=== PATIENT | male | born 1980 | race Caucasian/White ===

== ENCOUNTER → 2021-02-11 15:24 | Outpatient (BNVA) | payer MEDICAID, SELFPAY | PROVIDERS: PCP Internal Medicine; Visit Provider Internal Medicine | DX: Z86.73 Personal history of transient ischemic attack (TIA), and cerebral infarction without residual deficits (principal); Z51.81 Encounter for therapeutic drug level monitoring; Z79.01 Long term (current) use of anticoagulants | CPT/HCPCS: 85610; 99211 ==

== ENCOUNTER → 2021-02-24 09:15 | Outpatient (BNVA) | payer MEDICAID, SELFPAY | PROVIDERS: PCP Internal Medicine; Visit Provider Internal Medicine | DX: Z86.73 Personal history of transient ischemic attack (TIA), and cerebral infarction without residual deficits (principal); Z51.81 Encounter for therapeutic drug level monitoring; Z79.01 Long term (current) use of anticoagulants | CPT/HCPCS: 85610; 99211 ==

== ENCOUNTER → 2021-03-10 09:29 | Outpatient (BNVA) | payer MEDICAID, SELFPAY | PROVIDERS: PCP Internal Medicine; Visit Provider Internal Medicine | DX: Z86.73 Personal history of transient ischemic attack (TIA), and cerebral infarction without residual deficits (principal); Z51.81 Encounter for therapeutic drug level monitoring; Z79.01 Long term (current) use of anticoagulants | CPT/HCPCS: 85610; 99211 ==

== ENCOUNTER → 2021-03-22 10:07 | Outpatient (BNVA) | payer MEDICAID, SELFPAY | PROVIDERS: PCP Internal Medicine; Visit Provider Internal Medicine | DX: Z86.73 Personal history of transient ischemic attack (TIA), and cerebral infarction without residual deficits (principal); Z51.81 Encounter for therapeutic drug level monitoring; Z79.01 Long term (current) use of anticoagulants | CPT/HCPCS: 85610; 99211 ==

== ENCOUNTER → 2021-04-15 15:04 | Outpatient (BNVA) | payer MEDICAID, SELFPAY | PROVIDERS: PCP Internal Medicine; Visit Provider Internal Medicine Cardiovascular Disease | DX: I63.9 Cerebral infarction, unspecified (principal) | CPT/HCPCS: 93005; 99202 ==

== ENCOUNTER → 2021-04-21 10:07 | Outpatient (BNVA) | payer MEDICAID, SELFPAY | PROVIDERS: PCP Internal Medicine; Visit Provider Internal Medicine | DX: Z86.73 Personal history of transient ischemic attack (TIA), and cerebral infarction without residual deficits (principal); Z51.81 Encounter for therapeutic drug level monitoring; Z79.01 Long term (current) use of anticoagulants | CPT/HCPCS: 85610; 99211 ==

== ENCOUNTER → 2021-05-25 10:17 | Outpatient (BNVA) | payer MEDICAID, SELFPAY | PROVIDERS: PCP Internal Medicine; Visit Provider Internal Medicine | DX: Z86.73 Personal history of transient ischemic attack (TIA), and cerebral infarction without residual deficits (principal); Z79.01 Long term (current) use of anticoagulants; Z51.81 Encounter for therapeutic drug level monitoring | CPT/HCPCS: 85610; 99211 ==

== ENCOUNTER → 2021-06-01 10:01 | Outpatient (BNVA) | payer MEDICAID, SELFPAY | PROVIDERS: PCP Internal Medicine; Visit Provider Internal Medicine | DX: Z86.73 Personal history of transient ischemic attack (TIA), and cerebral infarction without residual deficits (principal); Z51.81 Encounter for therapeutic drug level monitoring; Z79.01 Long term (current) use of anticoagulants | CPT/HCPCS: 85610; 99211 ==

== ENCOUNTER → 2021-07-13 10:33 | Outpatient (BNVA) | payer MEDICAID, SELFPAY | PROVIDERS: PCP Internal Medicine; Visit Provider Internal Medicine | DX: Z86.73 Personal history of transient ischemic attack (TIA), and cerebral infarction without residual deficits (principal); Z51.81 Encounter for therapeutic drug level monitoring; Z79.01 Long term (current) use of anticoagulants | CPT/HCPCS: 85610; 99211 ==

== ENCOUNTER → 2021-07-20 11:34 | Outpatient (BNVA) | payer MEDICAID, SELFPAY | PROVIDERS: PCP Internal Medicine; Visit Provider Internal Medicine | DX: Z86.73 Personal history of transient ischemic attack (TIA), and cerebral infarction without residual deficits (principal); Z51.81 Encounter for therapeutic drug level monitoring; Z79.01 Long term (current) use of anticoagulants | CPT/HCPCS: 85610; 99211 ==

== ENCOUNTER 2021-08-24 11:15 | Outpatient (REF) | payer MEDICAID, SELFPAY ==
[2021-08-24 12:47] LABS: MANUAL DIFF FLAG NO
[2021-08-24 13:22] LABS: Basophils Percent Auto 0.4 % (0-2); Eosinophils Absolute Auto 0.1 X10*3/uL (0.0-0.4); Eosinophils Percent Auto 2.1 % (0-4); Hematocrit 45.9 % (42.0-52.0); Hemoglobin 16.2 g/dl (14.0-18.0); Imm Gran Abs Auto 0.05 X10*3/uL (0.00-0.03); Imm Gran Pct Auto 0.7 % (0.0-0.4); Lymphocytes Absolute Auto 2.5 X10*3/uL (1.2-4.9); Lymphocytes Percent Auto 36.6 % (20-40); Mean Corpuscular HGB Conc 35.3 g/dl (31.0-36.0); Mean Corpuscular Hemoglobin 30.8 pg (27.0-33.0); Mean Corpuscular Volume 87.3 fL (80.0-98.0); Mean Platelet Volume 10.2 fL (9.4-12.4); Monocytes Absolute Auto 0.5 X10*3/uL (0.1-1.2); Monocytes Percent Auto 7.9 % (2-11); Neutrophils Absolute Auto 3.5 x10*3/uL (2.0-8.3); Neutrophils Percent Auto 52.3 % (45-73); Platelet Count 255 X10*3/uL (160-400); Red Blood Count 5.26 X10*6/uL (4.60-5.80); Red Cell Distribution Width 12.6 % (11.0-16.0); White Blood Count 6.7 X10*3/uL (4.8-10.8)
[2021-08-24 13:54] LABS: Alanine Aminotransferase 43 U/L (0-40); Albumin Level 4.8 g/dL (3.5-5.0); Alkaline Phosphatase 68 U/L (39-117); Anion Gap 12 (12-20); Aspartate Amino Transferase 25 U/L (5-37); Bilirubin Total 0.4 mg/dL (0.0-1.0); Blood Urea Nitrogen 14 mg/dL (9-16); Calcium 9.7 mg/dL (8.4-10.2); Carbon Dioxide 27 mmol/L (22-29); Chloride 105 mmol/L (96-108); Cholesterol 194 mg/dL; Estimated Glomerular Filt Rate > 60; Glucose Random 82 mg/dL (60-115); HDL Cholesterol 37 mg/dL; LDL Cholesterol Calculated 111 mg/dl; Potassium 4.8 mmol/L (3.3-5.1); Sodium 139 mmol/L (135-145); Total Protein 7.7 g/dL (6.5-8.0); Triglycerides 232 mg/dL
[2021-08-24 14:07] LABS: INTERNATIONAL NORM RATIO 2.4 (0.9-1.1); Prothrombin Time 27.8 SEC (9.9-13.0)
== END 2021-08-24 11:16 | disposition home or self-care (01) ==
LOC: HO.LAB 11:15
PROVIDERS: Absent Provider Internal Medicine; PCP Internal Medicine; Visit Provider Internal Medicine
DX: E78.2 Mixed hyperlipidemia (principal); I10 Essential (primary) hypertension; Z79.01 Long term (current) use of anticoagulants; Z86.73 Personal history of transient ischemic attack (TIA), and cerebral infarction without residual deficits
CPT/HCPCS: 36415; 80053; 80061; 85025; 85610; 99211

== ENCOUNTER → 2021-09-21 11:38 | Outpatient (BNVA) | payer MEDICAID, SELFPAY | PROVIDERS: PCP Internal Medicine; Visit Provider Internal Medicine | DX: Z86.73 Personal history of transient ischemic attack (TIA), and cerebral infarction without residual deficits (principal); Z51.81 Encounter for therapeutic drug level monitoring; Z79.01 Long term (current) use of anticoagulants | CPT/HCPCS: 85610; 99211 ==

== ENCOUNTER → 2021-10-19 12:11 | Outpatient (BNVA) | payer MEDICAID, SELFPAY | PROVIDERS: PCP Internal Medicine; Visit Provider Internal Medicine | DX: Z86.73 Personal history of transient ischemic attack (TIA), and cerebral infarction without residual deficits (principal); Z51.81 Encounter for therapeutic drug level monitoring; Z79.01 Long term (current) use of anticoagulants | CPT/HCPCS: 85610; 99211 ==

== ENCOUNTER → 2021-11-03 11:22 | Outpatient (BNVA) | payer MEDICAID, SELFPAY | PROVIDERS: PCP Internal Medicine; Visit Provider Internal Medicine | DX: Z86.73 Personal history of transient ischemic attack (TIA), and cerebral infarction without residual deficits (principal); Z51.81 Encounter for therapeutic drug level monitoring; Z79.01 Long term (current) use of anticoagulants | CPT/HCPCS: 85610; 99211 ==

== ENCOUNTER → 2021-12-01 11:09 | Outpatient (BNVA) | payer MEDICAID, SELFPAY | PROVIDERS: PCP Internal Medicine; Visit Provider Internal Medicine | DX: Z86.73 Personal history of transient ischemic attack (TIA), and cerebral infarction without residual deficits (principal); Z51.81 Encounter for therapeutic drug level monitoring; Z79.01 Long term (current) use of anticoagulants | CPT/HCPCS: 85610; 99211 ==

== ENCOUNTER → 2022-01-03 11:33 | Outpatient (BNVA) | payer MEDICAID, SELFPAY | PROVIDERS: PCP Internal Medicine; Visit Provider Internal Medicine | DX: Z79.01 Long term (current) use of anticoagulants (principal); Z51.81 Encounter for therapeutic drug level monitoring | CPT/HCPCS: 85610; 99211 ==

== ENCOUNTER → 2022-02-07 11:44 | Outpatient (BNVA) | payer MEDICAID, SELFPAY | PROVIDERS: PCP Internal Medicine; Visit Provider Internal Medicine | DX: Z86.73 Personal history of transient ischemic attack (TIA), and cerebral infarction without residual deficits (principal); Z79.01 Long term (current) use of anticoagulants; Z51.81 Encounter for therapeutic drug level monitoring | CPT/HCPCS: 85610; 99211 ==

== ENCOUNTER → 2022-03-09 11:48 | Outpatient (BNVA) | payer MEDICAID, SELFPAY | PROVIDERS: PCP Internal Medicine; Visit Provider Internal Medicine | DX: Z86.73 Personal history of transient ischemic attack (TIA), and cerebral infarction without residual deficits (principal); Z79.01 Long term (current) use of anticoagulants; Z51.81 Encounter for therapeutic drug level monitoring | CPT/HCPCS: 85610; 99211 ==

== ENCOUNTER → 2022-04-06 13:15 | Outpatient (BNVA) | payer MEDICAID, SELFPAY | PROVIDERS: PCP Internal Medicine; Visit Provider Internal Medicine | DX: Z86.73 Personal history of transient ischemic attack (TIA), and cerebral infarction without residual deficits (principal); Z79.01 Long term (current) use of anticoagulants; Z51.81 Encounter for therapeutic drug level monitoring | CPT/HCPCS: 85610; 99211 ==

== ENCOUNTER → 2022-05-04 11:18 | Outpatient (BNVA) | payer MEDICAID, SELFPAY | PROVIDERS: PCP Internal Medicine; Visit Provider Internal Medicine | DX: Z86.73 Personal history of transient ischemic attack (TIA), and cerebral infarction without residual deficits (principal); Z51.81 Encounter for therapeutic drug level monitoring; Z79.01 Long term (current) use of anticoagulants | CPT/HCPCS: 85610; 99211 ==

== ENCOUNTER → 2022-05-17 09:04 | Outpatient (BNVA) | payer MEDICAID, SELFPAY | PROVIDERS: PCP Internal Medicine; Visit Provider Internal Medicine | DX: Z86.73 Personal history of transient ischemic attack (TIA), and cerebral infarction without residual deficits (principal); Z79.01 Long term (current) use of anticoagulants; Z51.81 Encounter for therapeutic drug level monitoring | CPT/HCPCS: 85610; 99211 ==

== ENCOUNTER → 2022-06-14 09:39 | Outpatient (BNVA) | payer MEDICAID, SELFPAY | PROVIDERS: PCP Internal Medicine; Visit Provider Internal Medicine | DX: Z86.73 Personal history of transient ischemic attack (TIA), and cerebral infarction without residual deficits (principal); Z79.01 Long term (current) use of anticoagulants; Z51.81 Encounter for therapeutic drug level monitoring | CPT/HCPCS: 85610; 99211 ==

== ENCOUNTER → 2022-08-09 08:36 | Outpatient (BNVA) | payer MEDICAID, SELFPAY | PROVIDERS: PCP Internal Medicine; Visit Provider Internal Medicine | DX: Z86.73 Personal history of transient ischemic attack (TIA), and cerebral infarction without residual deficits (principal); Z51.81 Encounter for therapeutic drug level monitoring; Z79.01 Long term (current) use of anticoagulants | CPT/HCPCS: 85610; 99211 ==

== ENCOUNTER → 2022-08-29 10:54 | Outpatient (BNVA) | payer MEDICAID, SELFPAY | PROVIDERS: PCP Internal Medicine; Visit Provider Internal Medicine | DX: Z86.73 Personal history of transient ischemic attack (TIA), and cerebral infarction without residual deficits (principal); Z79.01 Long term (current) use of anticoagulants; Z51.81 Encounter for therapeutic drug level monitoring | CPT/HCPCS: 85610; 99211 ==

== ENCOUNTER → 2022-10-04 14:29 | Outpatient (BNVA) | payer MEDICAID, SELFPAY | PROVIDERS: PCP Internal Medicine; Visit Provider Internal Medicine | DX: Z86.73 Personal history of transient ischemic attack (TIA), and cerebral infarction without residual deficits (principal); Z79.01 Long term (current) use of anticoagulants; Z51.81 Encounter for therapeutic drug level monitoring | CPT/HCPCS: 85610; 99211 ==

== ENCOUNTER → 2022-10-19 11:15 | Outpatient (BNVA) | payer MEDICAID, SELFPAY | PROVIDERS: PCP Internal Medicine; Visit Provider Internal Medicine | DX: Z86.73 Personal history of transient ischemic attack (TIA), and cerebral infarction without residual deficits (principal); Z79.01 Long term (current) use of anticoagulants; Z51.81 Encounter for therapeutic drug level monitoring | CPT/HCPCS: 85610; 99211 ==

== ENCOUNTER → 2022-11-09 13:13 | Outpatient (BNVA) | payer MEDICAID, SELFPAY | PROVIDERS: PCP Internal Medicine; Visit Provider Internal Medicine | DX: Z86.73 Personal history of transient ischemic attack (TIA), and cerebral infarction without residual deficits (principal); Z79.01 Long term (current) use of anticoagulants; Z51.81 Encounter for therapeutic drug level monitoring | CPT/HCPCS: 85610; 99211 ==

== ENCOUNTER → 2022-12-07 11:32 | Outpatient (BNVA) | payer MEDICAID, SELFPAY | PROVIDERS: PCP Internal Medicine; Visit Provider Internal Medicine | DX: Z86.73 Personal history of transient ischemic attack (TIA), and cerebral infarction without residual deficits (principal); Z79.01 Long term (current) use of anticoagulants; Z51.81 Encounter for therapeutic drug level monitoring | CPT/HCPCS: 85610; 99211 ==

== ENCOUNTER → 2023-01-23 13:42 | Outpatient (BNVA) | payer MEDICAID, SELFPAY | PROVIDERS: PCP Internal Medicine; Visit Provider Internal Medicine | DX: Z86.73 Personal history of transient ischemic attack (TIA), and cerebral infarction without residual deficits (principal); Z51.81 Encounter for therapeutic drug level monitoring; Z79.01 Long term (current) use of anticoagulants | CPT/HCPCS: 85610; 99211 ==

== ENCOUNTER → 2023-02-07 10:23 | Outpatient (BNVA) | payer MEDICAID, SELFPAY | PROVIDERS: PCP Internal Medicine; Visit Provider Internal Medicine | DX: Z86.73 Personal history of transient ischemic attack (TIA), and cerebral infarction without residual deficits (principal); Z79.01 Long term (current) use of anticoagulants; Z51.81 Encounter for therapeutic drug level monitoring | CPT/HCPCS: 85610; 99211 ==

== ENCOUNTER → 2023-02-14 10:30 | Outpatient (BNVA) | payer MEDICAID, SELFPAY | PROVIDERS: PCP Internal Medicine; Visit Provider Internal Medicine | DX: Z86.73 Personal history of transient ischemic attack (TIA), and cerebral infarction without residual deficits (principal); Z79.01 Long term (current) use of anticoagulants; Z51.81 Encounter for therapeutic drug level monitoring | CPT/HCPCS: 85610; 99211 ==

== ENCOUNTER → 2023-02-28 10:47 | Outpatient (BNVA) | payer MEDICAID, SELFPAY | PROVIDERS: PCP Internal Medicine; Visit Provider Internal Medicine | DX: Z86.73 Personal history of transient ischemic attack (TIA), and cerebral infarction without residual deficits (principal); Z79.01 Long term (current) use of anticoagulants; Z51.81 Encounter for therapeutic drug level monitoring | CPT/HCPCS: 85610; 99211 ==

== ENCOUNTER → 2023-03-28 10:12 | Outpatient (BNVA) | payer MEDICAID, SELFPAY | PROVIDERS: PCP Internal Medicine; Visit Provider Internal Medicine | DX: Z86.73 Personal history of transient ischemic attack (TIA), and cerebral infarction without residual deficits (principal); Z79.01 Long term (current) use of anticoagulants; Z51.81 Encounter for therapeutic drug level monitoring | CPT/HCPCS: 85610; 99211 ==

== ENCOUNTER 2023-04-25 10:10 | Outpatient (AMB) | payer MEDICAID, SELFPAY ==
--- NOTE | 2023-04-25 10:25 | MHC.OFFVISCO ---
Intake Intake Visit Reasons: Anticoagulation Allergies No Known Allergies Allergy (Mild, Verified 04/25/23 10:19) NOT APPLICABLE Medication List - Last Reconciled 04/25/23 by Andreina Lucas RN acetaminophen 650 mg PO DAILY simvastatin 20 mg PO DAILY warfarin 5 mg See Protocol PO DAILY warfarin 7.5 mg See Protocol PO DAILY Nursing Note INR: 3.1 in therapeutic range Medications and supplements reviewed No changes in health, diet, medications, or supplements, Denies any signs and symptoms of bleeding or bruising or clotting. Bleeding, bruising, clotting discussed Nutritional guidance given -ELSA TODAY Dose: 10mg x 1 day/ 7.5mg x 6DAYS F/U INR: 4 WEEKS CALL TO PCP FOR 5MG TAB REFILL Patient verbalizes understanding of instructions given Anti-Coag Initial Assessment Social Hx alcohol intake: current Alcohol intake frequency: holidays/special occasions only Coding Level of Care Code Est Patient Level 1 Diagnoses Current use of anticoagulant therapy Z79.01 Assessment & Plan Assessment & Plan (1) Current use of anticoagulant therapy: Code(s): Z79.01 - snf (current) use of anticoagulants Category: Medical
[2023-04-25 10:27] LABS: Prothrombin Time Whole Bld POC 36.9 sec (11.1-13.5); ~PT, ~INR - Anti Coag Clinic 3.1 (0.9-1.1)
== END 2023-04-25 10:40 | disposition home or self-care (01) ==
LOC: HO.ACS 10:10
PROVIDERS: PCP Internal Medicine; Visit Provider Internal Medicine
DX: Z79.01 Long term (current) use of anticoagulants (principal)

== ENCOUNTER → 2023-04-25 10:10 | Outpatient (BNVA) | payer MEDICAID, SELFPAY | PROVIDERS: PCP Internal Medicine; Visit Provider Internal Medicine | DX: Z86.73 Personal history of transient ischemic attack (TIA), and cerebral infarction without residual deficits (principal); Z79.01 Long term (current) use of anticoagulants; Z51.81 Encounter for therapeutic drug level monitoring | CPT/HCPCS: 85610; 99211 ==

== ENCOUNTER 2023-05-23 09:30 | Outpatient (REF) | payer MEDICAID, SELFPAY ==
[2023-05-23 10:08] LABS: MANUAL DIFF FLAG NO
[2023-05-23 11:02] LABS: Basophils Percent Auto 0.4 % (0-2); Eosinophils Absolute Auto 0.2 X10*3/uL (0.0-0.4); Eosinophils Percent Auto 2.9 % (0-4); Hematocrit 47.9 % (42.0-52.0); Imm Gran Abs Auto 0.05 X10*3/uL (0.00-0.03); Imm Gran Pct Auto 0.7 % (0.0-0.4); Lymphocytes Absolute Auto 2.3 X10*3/uL (1.2-4.9); Lymphocytes Percent Auto 33.2 % (20-40); Mean Corpuscular HGB Conc 35.5 g/dl (31.0-36.0); Mean Corpuscular Hemoglobin 30.6 pg (27.0-33.0); Mean Corpuscular Volume 86.3 fL (80.0-98.0); Mean Platelet Volume 10.7 fL (9.4-12.4); Monocytes Absolute Auto 0.6 X10*3/uL (0.1-1.2); Monocytes Percent Auto 8.6 % (2-11); Neutrophils Absolute Auto 3.7 x10*3/uL (2.0-8.3); Neutrophils Percent Auto 54.2 % (45-73); Platelet Count 224 X10*3/uL (160-400); Red Blood Count 5.55 X10*6/uL (4.60-5.80); Red Cell Distribution Width 12.9 % (11.0-16.0); White Blood Count 6.9 X10*3/uL (4.8-10.8)
[2023-05-23 11:38] LABS: Alanine Aminotransferase 89 U/L (0-40); Albumin Level 4.6 g/dL (3.5-5.0); Alkaline Phosphatase 70 U/L (39-117); Anion Gap 12 (12-20); Aspartate Amino Transferase 59 U/L (5-37); Bilirubin Total 0.7 mg/dL (0.0-1.0); Blood Urea Nitrogen 16 mg/dL (9-16); Calcium 9.8 mg/dL (8.4-10.2); Carbon Dioxide 26 mmol/L (22-29); Chloride 105 mmol/L (96-108); Cholesterol 221 mg/dL; Estimated Glomerular Filt Rate > 60; Glucose Random 96 mg/dL (60-115); HDL Cholesterol 43 mg/dL; Potassium 4.1 mmol/L (3.3-5.1); Sodium 139 mmol/L (135-145); Total Protein 7.8 g/dL (6.5-8.0); Triglycerides 438 mg/dL
== END 2023-05-23 09:31 | disposition home or self-care (01) ==
LOC: HO.LAB 09:30
PROVIDERS: Absent Provider Internal Medicine; PCP Internal Medicine; Visit Provider Internal Medicine
DX: Z00.00 Encounter for general adult medical examination without abnormal findings (principal); E78.00 Pure hypercholesterolemia, unspecified; I10 Essential (primary) hypertension; Z86.73 Personal history of transient ischemic attack (TIA), and cerebral infarction without residual deficits; Z51.81 Encounter for therapeutic drug level monitoring; Z79.01 Long term (current) use of anticoagulants
CPT/HCPCS: 36415; 80053; 80061; 85025; 85610; 99211

== ENCOUNTER 2023-05-23 09:30 | Outpatient (AMB) | payer MEDICAID, SELFPAY ==
--- NOTE | 2023-05-23 09:44 | MHC.OFFVISCO ---
Intake Intake Visit Reasons: Anticoagulation Allergies No Known Allergies Allergy (Mild, Verified 05/23/23 09:39) NOT APPLICABLE Medication List - Last Reconciled 05/23/23 by Shelly Fan RN acetaminophen 650 mg PO DAILY simvastatin 20 mg PO DAILY warfarin 5 mg See Protocol PO DAILY warfarin 7.5 mg See Protocol PO DAILY Nursing Note INR 4.3?? out of therapeutic range Medications and supplements reviewed Patient status: pt returned from [place] Medications or supplements: no changes Diet: same Denies any signs and symptoms of bleeding or clotting or unusual bruising Bleeding, bruising, clotting discussed Nutritional guidance given: eat greens for 2 days, no reds for 2 days Dose: hold today - pt req 5mg tomm then cont reg 7.5mg x 6, 10mg x 1 F/U INR Date : mon05/29/23?? Patient verbalizing understanding of instructions given. Anti-Coag Initial Assessment Social Hx alcohol intake: current Alcohol intake frequency: holidays/special occasions only Coding Level of Care Code Est Patient Level 1 Diagnoses Current use of anticoagulant therapy Z79.01 Results AMB INR Fingerstick AMB INR Fingerstick 4.3 Last Edit by Shelly Fan RN on 05/23/23 09:46 Assessment & Plan Assessment & Plan (1) Current use of anticoagulant therapy: Code(s): Z79.01 - [facility]P (current) use of anticoagulants Category: Medical
[2023-05-23 09:54] LABS: Prothrombin Time Whole Bld POC 51.6 sec (11.1-13.5); ~PT, ~INR - Anti Coag Clinic 4.3 (0.9-1.1)
== END 2023-05-23 09:52 | disposition home or self-care (01) ==
LOC: HO.ACS 09:30
PROVIDERS: PCP Internal Medicine; Visit Provider Internal Medicine
DX: Z79.01 Long term (current) use of anticoagulants (principal)

== ENCOUNTER 2023-05-29 11:37 | Outpatient (AMB) | payer MEDICAID, SELFPAY ==
[2023-05-29 11:43] LABS: Prothrombin Time Whole Bld POC 17.2 sec (11.1-13.5); ~PT, ~INR - Anti Coag Clinic 1.4 (0.9-1.1)
--- NOTE | 2023-05-29 11:46 | MHC.OFFVISCO ---
Intake Intake Visit Reasons: Anticoagulation Allergies No Known Allergies Allergy (Mild, Verified 05/29/23 11:38) NOT APPLICABLE Medication List - Last Reconciled 05/29/23 by Shelly Fan RN acetaminophen 650 mg PO DAILY simvastatin 20 mg PO DAILY warfarin 5 mg See Protocol PO DAILY warfarin 7.5 mg See Protocol PO DAILY Nursing Note INR 1.4-?? out of therapeutic range Medications and supplements reviewed Patient status: no c.o, prev elev 4.3 Medications or supplements: no changes Diet: same Denies any signs and symptoms of bleeding or clotting or unusual bruising Bleeding, bruising, clotting discussed Nutritional guidance given: no greens for 2 days, eat reds to raise Dose: 10mg today and tomm then cont reg 7.5mg x 6, 10mg x 1 F/U INR Date : pt ref earlier than 06/06/23?? Patient verbalizing understanding of instructions given. 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
== END 2023-05-29 11:49 | disposition home or self-care (01) ==
LOC: HO.ACS 11:37
PROVIDERS: PCP Internal Medicine; Visit Provider Internal Medicine
DX: Z79.01 Long term (current) use of anticoagulants (principal)

== ENCOUNTER → 2023-05-29 11:37 | Outpatient (BNVA) | payer MEDICAID, SELFPAY | PROVIDERS: PCP Internal Medicine; Visit Provider Internal Medicine | DX: Z86.73 Personal history of transient ischemic attack (TIA), and cerebral infarction without residual deficits (principal); Z79.01 Long term (current) use of anticoagulants; Z51.81 Encounter for therapeutic drug level monitoring | CPT/HCPCS: 85610; 99211 ==

== ENCOUNTER 2023-06-06 08:25 | Outpatient (AMB) | payer MEDICAID, SELFPAY ==
[2023-06-06 09:01] LABS: Prothrombin Time Whole Bld POC 14.3 sec (11.1-13.5); ~PT, ~INR - Anti Coag Clinic 1.2 (0.9-1.1)
--- NOTE | 2023-06-06 09:04 | MHC.OFFVISCO ---
Intake Intake Visit Reasons: Anticoagulation Allergies No Known Allergies Allergy (Mild, Verified 06/06/23 08:45) NOT APPLICABLE Medication List - Last Reconciled 06/06/23 by Ciera Pritchett RN acetaminophen 650 mg PO DAILY simvastatin 20 mg PO DAILY warfarin 5 mg See Protocol PO DAILY warfarin 7.5 mg See Protocol PO DAILY Nursing Note PT.INSISTS THAT HE HAS NOT MISSED ANY DOSES, BUT HAS STOPPED ETOH FOR THE PAST 2 WEEKS. HE ADMITS THAT HE WILL BE RESUMING ETOH IN A FEW WEEKS. DISCUSSION WAS HELD RE THE USE OF ETOH AND THE EFFECTS AND HAZZARDS OF IT'S USE WITH WARFARIN. PT.VERB.GOOD UNDERSTANDING OF THIS BOOST TO 10MGM 3 DAYS THIS WEEK AND FOLLOW-UP IN 1 WEEK. NO GREENS 3-4 DAYS. WILL INCREASE REDS. GOOD UNDERSTANDING VERB.BY PT. 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
== END 2023-06-06 11:59 | disposition home or self-care (01) ==
LOC: HO.ACS 08:25
PROVIDERS: PCP Internal Medicine; Visit Provider Internal Medicine
DX: Z79.01 Long term (current) use of anticoagulants (principal)

== ENCOUNTER → 2023-06-06 08:25 | Outpatient (BNVA) | payer MEDICAID, SELFPAY | PROVIDERS: PCP Internal Medicine; Visit Provider Internal Medicine | DX: Z86.73 Personal history of transient ischemic attack (TIA), and cerebral infarction without residual deficits (principal); Z79.01 Long term (current) use of anticoagulants; Z51.81 Encounter for therapeutic drug level monitoring | CPT/HCPCS: 85610; 99211 ==

== ENCOUNTER 2023-06-13 08:36 | Outpatient (AMB) | payer MEDICAID, SELFPAY ==
--- NOTE | 2023-06-13 08:42 | MHC.OFFVISCO ---
Intake Intake Visit Reasons: Anticoagulation Allergies No Known Allergies Allergy (Mild, Verified 06/13/23 08:38) NOT APPLICABLE Medication List - Last Reconciled 06/13/23 by Shelly Fan RN acetaminophen 650 mg PO DAILY simvastatin 20 mg PO DAILY warfarin 5 mg See Protocol PO DAILY warfarin 7.5 mg See Protocol PO DAILY Nursing Note INR 1.6-? out of therapeutic range- pt denies missed dosing Medications and supplements reviewed Patient status: pt prev inr 1.2, no c.o offered Medications or supplements: no changes Diet: same Denies any signs and symptoms of bleeding or clotting or unusual bruising Bleeding, bruising, clotting discussed Nutritional guidance given: no greens for 2 days, eat reds to raise Dose: 10mg today then cont 7.5mg x 6, 10mg x 1 F/U INR Date : 1 week?? Patient verbalizing understanding of instructions given. Anti-Coag Initial Assessment Social Hx alcohol intake: current Alcohol intake frequency: holidays/special occasions only Coding Level of Care Code Est Patient Level 1 Diagnoses Current use of anticoagulant therapy Z79.01 Assessment & Plan Assessment & Plan (1) Current use of anticoagulant therapy: Code(s): Z79.01 - [facility] (current) use of anticoagulants Category: Medical
[2023-06-13 08:43] LABS: Prothrombin Time Whole Bld POC 18.7 sec (11.1-13.5); ~PT, ~INR - Anti Coag Clinic 1.6 (0.9-1.1)
== END 2023-06-13 08:51 | disposition home or self-care (01) ==
LOC: HO.ACS 08:36
PROVIDERS: PCP Internal Medicine; Visit Provider Internal Medicine
DX: Z79.01 Long term (current) use of anticoagulants (principal)

== ENCOUNTER → 2023-06-13 08:36 | Outpatient (BNVA) | payer MEDICAID, SELFPAY | PROVIDERS: PCP Internal Medicine; Visit Provider Internal Medicine | DX: Z86.73 Personal history of transient ischemic attack (TIA), and cerebral infarction without residual deficits (principal); Z79.01 Long term (current) use of anticoagulants; Z51.81 Encounter for therapeutic drug level monitoring | CPT/HCPCS: 85610; 99211 ==

== ENCOUNTER 2023-08-02 08:25 | Outpatient (AMB) | payer MEDICAID, SELFPAY ==
--- NOTE | 2023-08-02 08:56 | MHC.OFFVISCO ---
Intake Intake Visit Reasons: Anticoagulation Allergies No Known Allergies Allergy (Mild, Verified 08/02/23 08:51) NOT APPLICABLE Medication List - Last Reconciled 08/02/23 by Shelly Fan RN acetaminophen 650 mg PO DAILY simvastatin 20 mg PO DAILY warfarin 5 mg See Protocol PO DAILY warfarin 7.5 mg See Protocol PO DAILY Nursing Note INR: 2.2- in therapeutic range Medications and supplements reviewed- no changes No changes in health, diet, medications, or supplements, Denies any signs and symptoms of bleeding or bruising or clotting. Bleeding, bruising, clotting discussed Nutritional guidance given Dose: 7.5mg x 6, 10mg x 1 F/U INR: 4 weeks Patient verbalizes understanding of instructions given pt states he may speak to pcp regarding getting off warfarin. 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
[2023-08-02 08:58] LABS: Prothrombin Time Whole Bld POC 26.8 sec (11.1-13.5); ~PT, ~INR - Anti Coag Clinic 2.2 (0.9-1.1)
== END 2023-08-02 09:02 | disposition home or self-care (01) ==
LOC: HO.ACS 08:25
PROVIDERS: PCP Internal Medicine; Visit Provider Internal Medicine
DX: Z79.01 Long term (current) use of anticoagulants (principal)

== ENCOUNTER → 2023-08-02 08:25 | Outpatient (BNVA) | payer MEDICAID, SELFPAY | PROVIDERS: PCP Internal Medicine; Visit Provider Internal Medicine | DX: Z86.73 Personal history of transient ischemic attack (TIA), and cerebral infarction without residual deficits (principal); Z79.01 Long term (current) use of anticoagulants; Z51.81 Encounter for therapeutic drug level monitoring | CPT/HCPCS: 85610; 99211 ==

== ENCOUNTER 2023-08-24 11:21 | Outpatient (REF) | payer MEDICAID, SELFPAY ==
[2023-08-24 11:43] LABS: MANUAL DIFF FLAG NO
[2023-08-24 12:03] LABS: Basophils Percent Auto 0.5 % (0-2); Eosinophils Absolute Auto 0.2 X10*3/uL (0.0-0.4); Eosinophils Percent Auto 2.8 % (0-4); Hemoglobin 16.5 g/dl (14.0-18.0); Imm Gran Abs Auto 0.03 X10*3/uL (0.00-0.03); Imm Gran Pct Auto 0.5 % (0.0-0.4); Lymphocytes Absolute Auto 2.5 X10*3/uL (1.2-4.9); Lymphocytes Percent Auto 41.7 % (20-40); Mean Corpuscular HGB Conc 35.9 g/dl (31.0-36.0); Mean Corpuscular Hemoglobin 31.1 pg (27.0-33.0); Mean Corpuscular Volume 86.6 fL (80.0-98.0); Mean Platelet Volume 10.5 fL (9.4-12.4); Monocytes Absolute Auto 0.4 X10*3/uL (0.1-1.2); Monocytes Percent Auto 6.1 % (2-11); Neutrophils Absolute Auto 2.9 x10*3/uL (2.0-8.3); Neutrophils Percent Auto 48.4 % (45-73); Platelet Count 244 X10*3/uL (160-400); Red Blood Count 5.31 X10*6/uL (4.60-5.80); Red Cell Distribution Width 13.2 % (11.0-16.0)
[2023-08-24 12:51] LABS: Cholesterol 222 mg/dL (<200); HDL Cholesterol 48 mg/dL (>40); LDL Cholesterol Calculated 141 mg/dL (<100); Triglycerides 165 mg/dL (<150)
== END 2023-08-24 11:22 | disposition home or self-care (01) ==
LOC: HO.LAB 11:21
PROVIDERS: PCP Internal Medicine; Visit Provider Internal Medicine
DX: Z13.89 Encounter for screening for other disorder (principal)
CPT/HCPCS: 36415; 80061; 85025

== ENCOUNTER 2023-08-29 10:35 | Outpatient (AMB) | payer MEDICAID, SELFPAY ==
[2023-08-29 10:41] LABS: Prothrombin Time Whole Bld POC 20.8 sec (11.1-13.5); ~PT, ~INR - Anti Coag Clinic 1.7 (0.9-1.1)
--- NOTE | 2023-08-29 10:43 | MHC.OFFVISCO ---
Intake Intake Visit Reasons: Anticoagulation Allergies No Known Allergies Allergy (Mild, Verified 08/29/23 10:36) NOT APPLICABLE Medication List - Last Reconciled 08/29/23 by Ginger Flynn RN acetaminophen 650 mg PO DAILY simvastatin 20 mg PO DAILY warfarin 5 mg See Protocol PO DAILY warfarin 7.5 mg See Protocol PO DAILY Nursing Note Amb to [facility] feeling well, has PCP appt after this visit Medications and supplements reviewed, sts I might have missed a dose but I made up for it when questioned sts he took 10mg vs 7.5 when he realized he missed dose pt does not use pill box, encouraged to use a pill box as many distractions in life and encouraged to call us if he notices missed dose No other changes in health, diet, medications, or supplements Denies any unusual signs and symptoms of bruising, bleeding Denies any new Chest pain, SOB, or clotting INR: 1.7 below therapeutic range, prev misssed dose, sts already took his 7.5mg today Nutritional guidance given: no greens today then balance greens and reds in diet, have a red to raise Dose: increase dose tomorrow to 10mg then continue usual dosing;10mg x 1 day and 7.5mg x 6 days F/U INR: 4 weeks Patient verbalizes understanding of instructions given with accurate read back/ teach back of dosing Anti-Coag Initial Assessment Social Hx alcohol intake: current Alcohol intake frequency: holidays/special occasions only Questionnaires HAS-BLED Does the patient had uncontrolled Hypertension?: No Does the patient have renal disease?: No Does the patient have liver disease?: No Does the patient have a history of stroke?: Yes Has the patient had major bleeding or predisposition to bleeding?: No Does the patient have labile INRs?: No Is the patient over 65 years of age?: No Is the patient on medications that gives them a predisposition to bleeding?: Yes Does the patient use alcohol?: Yes HAS-BLED Score: 3 CHADSVASC Age: <65 Gender: Male Does the patient have a history of CHF?: No Does the patient have a history of Hypertension?: No Does the patient have a history of Stroke/TIA/Thromboembolism?: Yes Does the patient have a history of Vascular Disease (prior TN, PAD or aortic plaque)?: No Does the patient have a history of Diabetes?: No CHADS VACS Score: 2 Rocio Prediction Score Rsk VTE Active Cancer: No Previous VTE, excluding superficial vein thrombosis: No Reduced mobility: No Already known Thrombophilic Condition: Yes With-in last month Trauma and/or Surgery: No Elderly 70 year or older: No Heart and/or Respiratory Failure: No Acute Myocardial infarction and/or Ischemic Stroke: Yes Acute Infection and/or Rheumatologic Disorder: No Obesity (BMI 30 or greater): No Ongoing Hormonal Treatment: No Score: 4 Rocio Score less than 4; Low Risk of VTE Rocio Score 4 or greater; High Risk of VTE Coding Level of Care Code Est Patient Level 1 Diagnoses Current use of anticoagulant therapy Z79.01 Time Spent (min) 15 Assessment & Plan Assessment & Plan (1) Current use of anticoagulant therapy: Code(s): Z79.01 - [facility] (current) use of anticoagulants Category: Medical
== END 2023-08-29 11:03 | disposition home or self-care (01) ==
LOC: HO.ACS 10:35
PROVIDERS: PCP Internal Medicine; Visit Provider Internal Medicine
DX: Z79.01 Long term (current) use of anticoagulants (principal)

== ENCOUNTER → 2023-08-29 10:35 | Outpatient (BNVA) | payer MEDICAID, SELFPAY | PROVIDERS: PCP Internal Medicine; Visit Provider Internal Medicine | DX: Z86.73 Personal history of transient ischemic attack (TIA), and cerebral infarction without residual deficits (principal); Z79.01 Long term (current) use of anticoagulants; Z51.81 Encounter for therapeutic drug level monitoring | CPT/HCPCS: 85610; 99211 ==

== ENCOUNTER 2023-09-26 10:20 | Outpatient (AMB) | payer MEDICAID, SELFPAY ==
--- NOTE | 2023-09-26 10:26 | MHC.OFFVISCO ---
Intake Intake Visit Reasons: Anticoagulation Allergies No Known Allergies Allergy (Mild, Verified 09/26/23 10:22) NOT APPLICABLE Medication List - Last Reconciled 09/26/23 by Shelly Fan RN acetaminophen 650 mg PO DAILY simvastatin 20 mg PO DAILY warfarin 5 mg See Protocol PO DAILY warfarin 7.5 mg See Protocol PO DAILY Nursing Note INR 3.5-?? out of therapeutic range of 2-3 Medications and supplements reviewed Patient status: no c.o, had wine monday Medications or supplements: no changes Diet: same Denies any signs and symptoms of bleeding or clotting or unusual bruising Bleeding, bruising, clotting discussed Nutritional guidance given: eat greens to lower, no reds for 2 days Dose: 5mg today then cont 7.5mg x 6, 10mg x 1 F/U INR Date : 2 week recommended, pt ref earlier than 4 weeks?? Patient verbalizing understanding of instructions given. 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
[2023-09-26 10:27] LABS: Prothrombin Time Whole Bld POC 42.3 sec (11.1-13.5); ~PT, ~INR - Anti Coag Clinic 3.5 (0.9-1.1)
== END 2023-09-26 10:32 | disposition home or self-care (01) ==
LOC: HO.ACS 10:20
PROVIDERS: PCP Internal Medicine; Visit Provider Internal Medicine
DX: Z79.01 Long term (current) use of anticoagulants (principal)

== ENCOUNTER → 2023-09-26 10:20 | Outpatient (BNVA) | payer MEDICAID, SELFPAY | PROVIDERS: PCP Internal Medicine; Visit Provider Internal Medicine | DX: Z86.73 Personal history of transient ischemic attack (TIA), and cerebral infarction without residual deficits (principal); Z79.01 Long term (current) use of anticoagulants; Z51.81 Encounter for therapeutic drug level monitoring | CPT/HCPCS: 85610; 99211 ==

== ENCOUNTER 2023-10-26 11:20 | Outpatient (AMB) | payer MEDICAID, SELFPAY ==
--- NOTE | 2023-10-26 11:51 | MHC.OFFVISCO ---
Intake Intake Visit Reasons: Anticoagulation Allergies No Known Allergies Allergy (Mild, Verified 10/26/23 11:21) NOT APPLICABLE Medication List - Last Reconciled 10/26/23 by Andreina Lucas RN acetaminophen 650 mg PO DAILY atorvastatin 40 mg PO BEDTIME warfarin 5 mg See Protocol PO DAILY warfarin 7.5 mg See Protocol PO DAILY Nursing Note INR 1.2 out of therapeutic range Medications and supplements reviewed Patient status: HAS HAD MULTIPLE CHANGES 1) SIMVISTATIN CHANGED TO ATORVASTATIN - SIMVISTATIN RAISES THE INR -GOING OFF WILL LOWER THE INR -ATORVASTATIN HAS NO EFFECT 2) STOPPED DRINKING ALCOHOL FOR OCTOBER - USUAL DRINKS 2-3 DRINKS PER NIGHT 3) HAS BEEN EATING HEALTHIER MORE GREENS 4) DRINKING GREEN TEA DAILY 5) STOPPED COFFEE ALSO Medications or supplements: CHOLESTEROL MED CHANGE Diet: APPETITE GOOD - EATING HEALTHIER MEALS Denies any signs and symptoms of bleeding or clotting or unusual bruising Bleeding, bruising, clotting discussed Nutritional guidance given: ENC TO REVIEW FOOD LIST WEEKLKY - EAT ORANGE AND REDS TO HELP BALANCE THE INR WHEN EATING MORE GREENS Dose: INCREASE WEEKLY DOSE FOR NOW 10MG X 2 DAYS/ 7.5MG X 5 DAYS F/U INR Date : 2 WEEKS PER PT REQUEST -HE IS AWARE OF RISK OF CLOT AN STROKE WITH LOW INR - HE TAKES WARFARIN OF HIS OWN CHOICE ?? PCP OFFICE CLOSED AT THIS TIME- MSG LEFT WITH PT STATUS. WILL CALL BACK AGTER 1 PM Patient verbalizing understanding of instructions given. 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
[2023-10-27 08:12] LABS: Prothrombin Time Whole Bld POC 14.6 sec (11.1-13.5); ~PT, ~INR - Anti Coag Clinic 1.2 (0.9-1.1)
== END 2023-10-26 12:05 | disposition home or self-care (01) ==
LOC: HO.ACS 11:20
PROVIDERS: PCP Internal Medicine; Visit Provider Internal Medicine
DX: Z79.01 Long term (current) use of anticoagulants (principal)

== ENCOUNTER → 2023-10-26 11:20 | Outpatient (BNVA) | payer MEDICAID, SELFPAY | PROVIDERS: PCP Internal Medicine; Visit Provider Internal Medicine | DX: Z86.73 Personal history of transient ischemic attack (TIA), and cerebral infarction without residual deficits (principal); Z79.01 Long term (current) use of anticoagulants; Z51.81 Encounter for therapeutic drug level monitoring | CPT/HCPCS: 85610; 99211 ==

== ENCOUNTER 2023-11-08 10:12 | Outpatient (AMB) | payer MEDICAID, SELFPAY ==
--- NOTE | 2023-11-08 10:23 | MHC.OFFVISCO ---
Intake Intake Visit Reasons: Anticoagulation Allergies No Known Allergies Allergy (Mild, Verified 11/08/23 10:18) NOT APPLICABLE Medication List - Last Reconciled 11/08/23 by Shelly Fan RN acetaminophen 650 mg PO DAILY atorvastatin 40 mg PO BEDTIME warfarin 5 mg See Protocol PO DAILY warfarin 7.5 mg See Protocol PO DAILY Nursing Note INR: 2.6- in therapeutic range of 2-3 Medications and supplements reviewed no changes No changes in health, diet, medications, or supplements, Denies any signs and symptoms of bleeding or bruising or clotting. 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
[2023-11-08 10:25] LABS: Prothrombin Time Whole Bld POC 30.9 sec (11.1-13.5); ~PT, ~INR - Anti Coag Clinic 2.6 (0.9-1.1)
== END 2023-11-08 10:28 | disposition home or self-care (01) ==
LOC: HO.ACS 10:12
PROVIDERS: PCP Internal Medicine; Visit Provider Internal Medicine
DX: Z79.01 Long term (current) use of anticoagulants (principal)

== ENCOUNTER → 2023-11-08 10:12 | Outpatient (BNVA) | payer MEDICAID, SELFPAY | PROVIDERS: PCP Internal Medicine; Visit Provider Internal Medicine | DX: Z86.73 Personal history of transient ischemic attack (TIA), and cerebral infarction without residual deficits (principal); Z79.01 Long term (current) use of anticoagulants; Z51.81 Encounter for therapeutic drug level monitoring | CPT/HCPCS: 85610; 99211 ==

== ENCOUNTER 2023-12-11 10:08 | Outpatient (AMB) | payer MEDICAID, SELFPAY ==
--- NOTE | 2023-12-11 10:12 | MHC.OFFVISCO ---
Intake Intake Visit Reasons: Anticoagulation Allergies No Known Allergies Allergy (Mild, Verified 12/11/23 10:12) NOT APPLICABLE Medication List - Last Reconciled 12/11/23 by Ginger Lyon, RN acetaminophen 650 mg PO DAILY atorvastatin 40 mg PO BEDTIME warfarin 5 mg See Protocol PO DAILY warfarin 7.5 mg See Protocol PO DAILY Nursing Note INR 5.0?out of therapeutic range of 2-2 Medications and supplements reviewed Patient status: pt states he thinks he missed a dose and has self adjusted his warfarin. Pt leaving on vacation to [place] tomorrow. Dr Erickson's office called to get script to have INR done while on vacation. Medications or supplements: no changes Diet: has not been as careful with his diet but today and tomorrow will have cooked greens. and no reds Denies any signs and symptoms of bleeding or clotting or unusual bruising Bleeding, bruising, clotting discussed Dose: no warfarin today and tomorrow then 7.5mg X6days and [id number] F/U INR Date : ?1 week? Patient verbalizing understanding of instructions given. 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
[2023-12-11 10:18] LABS: Prothrombin Time Whole Bld POC 59.5 sec (11.1-13.5)
== END 2023-12-11 10:45 | disposition home or self-care (01) ==
LOC: HO.ACS 10:08
PROVIDERS: PCP Internal Medicine; Visit Provider Internal Medicine
DX: Z79.01 Long term (current) use of anticoagulants (principal)

== ENCOUNTER 2023-12-11 10:08 | Outpatient (REF) | payer MEDICAID, SELFPAY ==
[2023-12-11 11:31] LABS: MANUAL DIFF FLAG NO
[2023-12-11 12:04] LABS: Basophils Percent Auto 0.3 % (0-2); Eosinophils Absolute Auto 0.1 X10*3/uL (0.0-0.4); Eosinophils Percent Auto 1.4 % (0-4); Hematocrit 46.8 % (42.0-52.0); Hemoglobin 16.9 g/dl (14.0-18.0); Imm Gran Abs Auto 0.09 X10*3/uL (0.00-0.03); Lymphocytes Absolute Auto 2.3 X10*3/uL (1.2-4.9); Lymphocytes Percent Auto 25.8 % (20-40); Mean Corpuscular HGB Conc 36.1 g/dl (31.0-36.0); Mean Corpuscular Hemoglobin 30.9 pg (27.0-33.0); Mean Corpuscular Volume 85.6 fL (80.0-98.0); Mean Platelet Volume 9.9 fL (9.4-12.4); Monocytes Absolute Auto 0.5 X10*3/uL (0.1-1.2); Monocytes Percent Auto 5.6 % (2-11); Neutrophils Absolute Auto 5.8 x10*3/uL (2.0-8.3); Neutrophils Percent Auto 65.9 % (45-73); Platelet Count 287 X10*3/uL (160-400); Red Blood Count 5.47 X10*6/uL (4.60-5.80); White Blood Count 8.9 X10*3/uL (4.8-10.8)
[2023-12-11 13:00] LABS: Alanine Aminotransferase 39 U/L (0-40); Albumin Level 4.8 g/dL (3.5-5.0); Alkaline Phosphatase 79 U/L (39-117); Anion Gap 12 (12-20); Aspartate Amino Transferase 35 U/L (5-37); Bilirubin Total 0.5 mg/dL (0.0-1.0); Blood Urea Nitrogen 11 mg/dL (9-16); Calcium 9.8 mg/dL (8.4-10.2); Carbon Dioxide 28 mmol/L (22-29); Chloride 103 mmol/L (96-108); Cholesterol 224 mg/dL (<200); Estimated Glomerular Filt Rate > 60; Glucose Random 94 mg/dL (60-115); HDL Cholesterol 40 mg/dL (>40); Potassium 4.4 mmol/L (3.3-5.1); Sodium 139 mmol/L (135-145); Triglycerides 429 mg/dL (<150)
== END 2023-12-11 10:09 | disposition home or self-care (01) ==
LOC: HO.LAB 10:08
PROVIDERS: PCP Internal Medicine; Visit Provider Internal Medicine
DX: Z86.73 Personal history of transient ischemic attack (TIA), and cerebral infarction without residual deficits (principal); E78.00 Pure hypercholesterolemia, unspecified; I10 Essential (primary) hypertension; Z51.81 Encounter for therapeutic drug level monitoring; Z79.01 Long term (current) use of anticoagulants; Z00.00 Encounter for general adult medical examination without abnormal findings
CPT/HCPCS: 36415; 80053; 80061; 85025; 85610; 99211

== ENCOUNTER 2023-12-21 14:24 | Outpatient (AMB) | payer MEDICAID, SELFPAY ==
[2023-12-21 14:35] LABS: Prothrombin Time Whole Bld POC 40.3 sec (11.1-13.5); ~PT, ~INR - Anti Coag Clinic 3.4 (0.9-1.1)
--- NOTE | 2023-12-21 14:44 | MHC.OFFVISCO ---
Intake Intake Visit Reasons: Anticoagulation Allergies No Known Allergies Allergy (Mild, Verified 12/21/23 14:28) NOT APPLICABLE Medication List - Last Reconciled 12/21/23 by Ciera Pritchett, RN acetaminophen 650 mg PO DAILY atorvastatin 40 mg PO BEDTIME warfarin 5 mg See Protocol PO DAILY warfarin 7.5 mg See Protocol PO DAILY Nursing Note NO CP,SOB,DIET/MED CHANGES,FALLS OR SX OF BLEEDING. REDUCE DOSE TO 7.5MGM TOMORROW THEN RESUME PRESENT DOSING AND FOLLOW-UP IN 4 WEEKS(PT.REFUSES EARLIER APPT.TIME) GOOD UNDERSTANDING OFDOSING INSTR. 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
== END 2023-12-21 14:48 | disposition home or self-care (01) ==
LOC: HO.ACS 14:24
PROVIDERS: PCP Internal Medicine; Visit Provider Internal Medicine
DX: Z79.01 Long term (current) use of anticoagulants (principal)

== ENCOUNTER → 2023-12-21 14:24 | Outpatient (BNVA) | payer MEDICAID, SELFPAY | PROVIDERS: PCP Internal Medicine; Visit Provider Internal Medicine | DX: Z86.73 Personal history of transient ischemic attack (TIA), and cerebral infarction without residual deficits (principal); Z79.01 Long term (current) use of anticoagulants; Z51.81 Encounter for therapeutic drug level monitoring | CPT/HCPCS: 85610; 99211 ==

== ENCOUNTER 2024-01-17 09:24 | Outpatient (AMB) | payer MEDICAID, SELFPAY ==
[2024-01-17 09:40] LABS: Prothrombin Time Whole Bld POC 18.3 sec (11.1-13.5); ~PT, ~INR - Anti Coag Clinic 1.5 (0.9-1.1)
--- NOTE | 2024-01-17 09:47 | MHC.OFFVISCO ---
Intake Intake Visit Reasons: Anticoagulation Allergies No Known Allergies Allergy (Mild, Verified 01/17/24 09:36) NOT APPLICABLE Medication List - Last Reconciled 01/17/24 by Ciera Pritchett, RN acetaminophen 650 mg PO DAILY atorvastatin 40 mg PO BEDTIME warfarin 5 mg See Protocol PO DAILY warfarin 7.5 mg See Protocol PO DAILY Nursing Note PT.HAS MISSED ONE DOSE THIS WEEK. HE DENIES ANY CP,SOB,DIET/MED CHANGES,FALLS OR SX OF BLEEDING. BOOST TO 10MGM TODAY AND TOMORROW AND FOLLOW-UP IN 1 WEEK. NO GREENS 2-3 DAYS. GOOD UNDERSTANDING OF DOSING INSTR. ([facility])NOTIFIED OF LOW INR AND PLAN OF CARE. Anti-Coag Initial Assessment Social Hx alcohol intake: current Alcohol intake frequency: holidays/special occasions only Coding Level of Care Code Est Patient Level 1 Diagnoses Current use of anticoagulant therapy Z79.01 Assessment & Plan Assessment & Plan (1) Current use of anticoagulant therapy: Code(s): Z79.01 - skilled nursing (current) use of anticoagulants Category: Medical
== END 2024-01-17 10:58 | disposition home or self-care (01) ==
LOC: HO.ACS 09:24
PROVIDERS: PCP Internal Medicine; Visit Provider Internal Medicine
DX: Z79.01 Long term (current) use of anticoagulants (principal)

== ENCOUNTER → 2024-01-17 09:24 | Outpatient (BNVA) | payer MEDICAID, SELFPAY | PROVIDERS: PCP Internal Medicine; Visit Provider Internal Medicine | DX: Z86.73 Personal history of transient ischemic attack (TIA), and cerebral infarction without residual deficits (principal); Z51.81 Encounter for therapeutic drug level monitoring; Z79.01 Long term (current) use of anticoagulants | CPT/HCPCS: 85610; 99211 ==

== ENCOUNTER → 2024-01-25 11:18 | Outpatient (BNVA) | payer MEDICAID, SELFPAY | PROVIDERS: PCP Internal Medicine; Visit Provider Internal Medicine | DX: Z86.73 Personal history of transient ischemic attack (TIA), and cerebral infarction without residual deficits (principal); Z51.81 Encounter for therapeutic drug level monitoring; Z79.01 Long term (current) use of anticoagulants | CPT/HCPCS: 85610; 99211 ==

== ENCOUNTER 2024-02-21 10:20 | Outpatient (AMB) | payer MEDICAID, SELFPAY ==
[2024-02-21 10:26] LABS: Prothrombin Time Whole Bld POC 51.8 sec (11.1-13.5); ~PT, ~INR - Anti Coag Clinic 4.3 (0.9-1.1)
--- NOTE | 2024-02-21 10:33 | MHC.OFFVISCO ---
Intake Intake Visit Reasons: Anticoagulation Allergies No Known Allergies Allergy (Mild, Verified 02/21/24 10:21) NOT APPLICABLE Medication List - Last Reconciled 02/21/24 by Ciera Pritchett, RN acetaminophen 650 mg PO DAILY atorvastatin 40 mg PO BEDTIME warfarin 5 mg See Protocol PO DAILY warfarin 7.5 mg See Protocol PO DAILY Nursing Note PT. HAS HAD RECENT INCREASE IN ETOH INTAKE. NO CP,SOB,MED CHANGES OR SX OF BLEEDING. HOLD WARFARIN TOMORROW(TOOK THIS AM)AND RECHECK INR IN 1 WEEK. GREENS TODAY GOOD UNDERSTANDING OF DOSING INSTR. 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
== END 2024-02-21 10:35 | disposition home or self-care (01) ==
LOC: HO.ACS 10:20
PROVIDERS: PCP Internal Medicine; Visit Provider Internal Medicine
DX: Z79.01 Long term (current) use of anticoagulants (principal)

== ENCOUNTER → 2024-02-21 10:20 | Outpatient (BNVA) | payer MEDICAID, SELFPAY | PROVIDERS: PCP Internal Medicine; Visit Provider Internal Medicine | DX: Z86.73 Personal history of transient ischemic attack (TIA), and cerebral infarction without residual deficits (principal); Z51.81 Encounter for therapeutic drug level monitoring; Z79.01 Long term (current) use of anticoagulants | CPT/HCPCS: 85610; 99211 ==

== ENCOUNTER 2024-02-28 10:48 | Outpatient (AMB) | payer MEDICAID, SELFPAY ==
--- NOTE | 2024-02-28 10:55 | MHC.OFFVISCO ---
Intake Intake Visit Reasons: Anticoagulation Allergies No Known Allergies Allergy (Mild, Verified 02/28/24 10:52) NOT APPLICABLE Medication List - Last Reconciled 02/28/24 by Shelly Fan RN acetaminophen 650 mg PO DAILY atorvastatin 40 mg PO BEDTIME warfarin 5 mg See Protocol PO DAILY warfarin 7.5 mg See Protocol PO DAILY Nursing Note INR: 2.0- in therapeutic range of 2-3 Medications and supplements reviewed No changes in health, diet, medications, or supplements, Denies any signs and symptoms of bleeding or bruising or clotting. Bleeding, bruising, clotting discussed Nutritional guidance given - no greens for 2 days, eat a red today Dose: 7.5mg x 6. 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
[2024-02-28 10:57] LABS: Prothrombin Time Whole Bld POC 24.2 sec (11.1-13.5)
== END 2024-02-28 11:16 | disposition home or self-care (01) ==
LOC: HO.ACS 10:48
PROVIDERS: PCP Internal Medicine; Visit Provider Internal Medicine
DX: Z79.01 Long term (current) use of anticoagulants (principal)

== ENCOUNTER → 2024-02-28 10:48 | Outpatient (BNVA) | payer MEDICAID, SELFPAY | PROVIDERS: PCP Internal Medicine; Visit Provider Internal Medicine | DX: Z86.73 Personal history of transient ischemic attack (TIA), and cerebral infarction without residual deficits (principal); Z79.01 Long term (current) use of anticoagulants; Z51.81 Encounter for therapeutic drug level monitoring | CPT/HCPCS: 85610; 99211 ==

== ENCOUNTER 2024-04-01 10:09 | Outpatient (AMB) | payer MEDICAID, SELFPAY ==
[2024-04-01 10:29] LABS: Prothrombin Time Whole Bld POC 50.2 sec (11.1-13.5); ~PT, ~INR - Anti Coag Clinic 4.2 (0.9-1.1)
--- NOTE | 2024-04-01 10:30 | MHC.OFFVISCO ---
Intake Intake Visit Reasons: Anticoagulation Allergies No Known Allergies Allergy (Mild, Verified 04/01/24 10:17) NOT APPLICABLE Medication List - Last Reconciled 04/01/24 by Ginger Lyon RN acetaminophen 650 mg PO DAILY atorvastatin 40 mg PO BEDTIME warfarin 5 mg See Protocol PO DAILY warfarin 7.5 mg See Protocol PO DAILY Nursing Note INR 4.2?out of therapeutic range of 2-3 Medications and supplements reviewed Patient status: well Medications or supplements: no changes Diet: had father's day bbq yesterday with watermelon and etoh, both of which can raise the INR Denies any signs and symptoms of bleeding or clotting or unusual bruising Bleeding, bruising, clotting discussed Nutritional guidance given: to have a serving of greens today Dose: hold today's dose of 7.5mg then usual dose of 7.5mg X 6 days and 10mg X 1 day F/U INR Date : preferred 1 week but pt requesting 4 weeks?? Patient verbalizing understanding of instructions given. Anti-Coag Initial Assessment Social Hx alcohol intake: current Alcohol intake frequency: holidays/special occasions only Coding Level of Care Code Est Patient Level 1 Diagnoses Current use of anticoagulant therapy Z79.01 Results AMB INR Fingerstick AMB INR Fingerstick 4.2 Last Edit by Ginger Lyon RN on 04/01/24 10:25 interface delay Assessment & Plan Assessment & Plan (1) Current use of anticoagulant therapy: Code(s): Z79.01 - custodial (current) use of anticoagulants Category: Medical
== END 2024-04-01 10:33 | disposition home or self-care (01) ==
LOC: HO.ACS 10:09
PROVIDERS: PCP Internal Medicine; Visit Provider Internal Medicine
DX: Z79.01 Long term (current) use of anticoagulants (principal)

== ENCOUNTER → 2024-04-01 10:09 | Outpatient (BNVA) | payer MEDICAID, SELFPAY | PROVIDERS: PCP Internal Medicine; Visit Provider Internal Medicine | DX: Z86.73 Personal history of transient ischemic attack (TIA), and cerebral infarction without residual deficits (principal); Z79.01 Long term (current) use of anticoagulants; Z51.81 Encounter for therapeutic drug level monitoring | CPT/HCPCS: 85610; 99211 ==

== ENCOUNTER → 2024-04-26 10:17 | Outpatient (BNVA) | payer MEDICAID, SELFPAY | PROVIDERS: PCP Internal Medicine; Visit Provider Internal Medicine | DX: Z86.73 Personal history of transient ischemic attack (TIA), and cerebral infarction without residual deficits (principal); Z79.01 Long term (current) use of anticoagulants; Z51.81 Encounter for therapeutic drug level monitoring | CPT/HCPCS: 85610; 99211 ==

== ENCOUNTER 2024-05-24 15:04 | Outpatient (AMB) | payer MEDICAID, SELFPAY ==
[2024-05-24 15:11] LABS: ~PT, ~INR - Anti Coag Clinic 1.8 (0.9-1.1)
--- NOTE | 2024-05-24 15:16 | MHC.OFFVISCO ---
Intake Intake Visit Reasons: Anticoagulation Allergies No Known Allergies Allergy (Mild, Verified 05/24/24 15:05) NOT APPLICABLE Medication List - Last Reconciled 05/24/24 by Andreina Lucas RN acetaminophen 650 mg PO DAILY atorvastatin 40 mg PO BEDTIME warfarin 5 mg See Protocol PO DAILY warfarin 7.5 mg See Protocol PO DAILY Nursing Note INR: 1.8 almost therapeutic range- missed 2 doses Medications and supplements reviewed No changes in health, diet, medications, or supplements, Denies any signs and symptoms of bleeding or bruising or clotting. Bleeding, bruising, clotting discussed Nutritional guidance given Dose: 10mg x 2 days this week then 10mg x 1 day/ 7.5mg x 6 days F/U INR: 1 month Patient verbalizes understanding of instructions given Anti-Coag Initial Assessment Social Hx alcohol intake: current Alcohol intake frequency: holidays/special occasions only Coding Level of Care Code Est Patient Level 1 Diagnoses Current use of anticoagulant therapy Z79.01 Results AMB INR Fingerstick AMB INR Fingerstick 1.8 Last Edit by Andreina Lucas RN on 05/24/24 15:12 manual entry Assessment & Plan Assessment & Plan (1) Current use of anticoagulant therapy: Code(s): 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
== END 2024-05-24 15:20 | disposition home or self-care (01) ==
LOC: HO.ACS 15:04
PROVIDERS: PCP Internal Medicine; Visit Provider Internal Medicine
DX: Z79.01 Long term (current) use of anticoagulants (principal)

== ENCOUNTER → 2024-05-24 15:04 | Outpatient (BNVA) | payer MEDICAID, SELFPAY | PROVIDERS: PCP Internal Medicine; Visit Provider Internal Medicine | DX: Z86.73 Personal history of transient ischemic attack (TIA), and cerebral infarction without residual deficits (principal); Z79.01 Long term (current) use of anticoagulants; Z51.81 Encounter for therapeutic drug level monitoring | CPT/HCPCS: 85610; 99211 ==

== ENCOUNTER 2024-06-19 10:09 | Outpatient (AMB) | payer MEDICAID, SELFPAY ==
--- NOTE | 2024-06-19 10:20 | MHC.OFFVISCO ---
Intake Intake Visit Reasons: Anticoagulation Allergies No Known Allergies Allergy (Mild, Verified 06/19/24 10:16) NOT APPLICABLE Medication List - Last Reconciled 06/19/24 by Shelly Fan RN acetaminophen 650 mg PO DAILY atorvastatin 40 mg PO BEDTIME warfarin 5 mg See Protocol PO DAILY warfarin 7.5 mg See Protocol PO DAILY Nursing Note INR: 2.5- in therapeutic range of 2-3 Medications and supplements reviewed- no changes No changes in health, diet, medications, or supplements, Denies any signs and symptoms of bleeding or bruising or clotting. Bleeding, bruising, clotting discussed Nutritional guidance given Dose: 7.5mg x 6, 10mg x 1 F/U INR: 4 weeks Patient verbalizes understanding of instructions given Anti-Coag Initial Assessment Social Hx alcohol intake: current Alcohol intake frequency: holidays/special occasions only Coding Level of Care Code Est Patient Level 1 Diagnoses Current use of anticoagulant therapy Z79.01 Results AMB INR Fingerstick AMB INR Fingerstick 2.5 Last Edit by Shelly Fan RN on 06/19/24 10:21 interface delay Assessment & Plan Assessment & Plan (1) Current use of anticoagulant therapy: Code(s): Z79.01 - [facility] (current) use of anticoagulants Category: Medical
[2024-06-19 10:21] LABS: Prothrombin Time Whole Bld POC 29.9 sec (11.1-13.5); ~PT, ~INR - Anti Coag Clinic 2.5 (0.9-1.1)
== END 2024-06-19 10:25 | disposition home or self-care (01) ==
LOC: HO.ACS 10:09
PROVIDERS: PCP Internal Medicine; Visit Provider Internal Medicine
DX: Z79.01 Long term (current) use of anticoagulants (principal)

== ENCOUNTER → 2024-06-19 10:09 | Outpatient (BNVA) | payer MEDICAID, SELFPAY | PROVIDERS: PCP Internal Medicine; Visit Provider Internal Medicine | DX: Z86.73 Personal history of transient ischemic attack (TIA), and cerebral infarction without residual deficits (principal); Z79.01 Long term (current) use of anticoagulants; Z51.81 Encounter for therapeutic drug level monitoring | CPT/HCPCS: 85610; 99211 ==

== ENCOUNTER 2024-07-01 09:54 | Outpatient (REF) | payer MEDICAID, SELFPAY ==
[2024-07-01 10:19] LABS: MANUAL DIFF FLAG NO
[2024-07-01 11:06] LABS: Basophils Percent Auto 0.5 % (0-2); Eosinophils Absolute Auto 0.1 X10*3/uL (0.0-0.4); Eosinophils Percent Auto 2.2 % (0-4); Hemoglobin 15.7 g/dl (14.0-18.0); Imm Gran Abs Auto 0.06 X10*3/uL (0.00-0.03); Lymphocytes Absolute Auto 2.5 X10*3/uL (1.2-4.9); Lymphocytes Percent Auto 39.1 % (20-40); Mean Corpuscular HGB Conc 35.7 g/dl (31.0-36.0); Mean Corpuscular Hemoglobin 31.3 pg (27.0-33.0); Mean Corpuscular Volume 87.6 fL (80.0-98.0); Mean Platelet Volume 10.6 fL (9.4-12.4); Monocytes Absolute Auto 0.4 X10*3/uL (0.1-1.2); Monocytes Percent Auto 6.2 % (2-11); Neutrophils Absolute Auto 3.2 x10*3/uL (2.0-8.3); Platelet Count 216 X10*3/uL (160-400); Red Blood Count 5.02 X10*6/uL (4.60-5.80); Red Cell Distribution Width 13.1 % (11.0-16.0); White Blood Count 6.3 X10*3/uL (4.8-10.8)
[2024-07-01 11:52] LABS: Alanine Aminotransferase 27 U/L (0-40); Albumin Level 4.6 g/dL (3.5-5.0); Alkaline Phosphatase 63 U/L (39-117); Anion Gap 13 (12-20); Aspartate Amino Transferase 26 U/L (5-37); Bilirubin Total 0.4 mg/dL (0.0-1.0); Blood Urea Nitrogen 15 mg/dL (9-16); Calcium 9.9 mg/dL (8.4-10.2); Carbon Dioxide 26 mmol/L (22-29); Chloride 105 mmol/L (96-108); Estimated Glomerular Filt Rate > 60; Glucose Random 96 mg/dL (60-115); Potassium 4.1 mmol/L (3.3-5.1); Sodium 140 mmol/L (135-145); Thyroid Stimulating Hormone 1.19 uIU/mL (0.32-4.0); Total Protein 7.5 g/dL (6.5-8.0)
== END 2024-07-01 09:55 | disposition home or self-care (01) ==
LOC: HO.LAB 09:54
PROVIDERS: PCP Internal Medicine; Visit Provider Internal Medicine
DX: Z00.00 Encounter for general adult medical examination without abnormal findings (principal); E78.00 Pure hypercholesterolemia, unspecified; I10 Essential (primary) hypertension; R74.01 Elevation of levels of liver transaminase levels; Z79.01 Long term (current) use of anticoagulants
CPT/HCPCS: 36415; 80053; 84443; 85025

== ENCOUNTER 2024-08-07 09:59 | Outpatient (AMB) | payer MEDICAID, SELFPAY ==
[2024-08-07 10:12] LABS: Prothrombin Time Whole Bld POC 20.9 sec (11.1-13.5); ~PT, ~INR - Anti Coag Clinic 1.7 (0.9-1.1)
--- NOTE | 2024-08-07 10:20 | MHC.OFFVISCO ---
Intake Intake Visit Reasons: Anticoagulation Allergies No Known Allergies Allergy (Mild, Verified 08/07/24 10:06) NOT APPLICABLE Medication List - Last Reconciled 08/07/24 by Ciera Pritchett, RN acetaminophen 650 mg PO DAILY atorvastatin 40 mg PO BEDTIME warfarin 5 mg See Protocol PO DAILY warfarin 7.5 mg See Protocol PO DAILY Nursing Note PT.STATES THAT HE IS DETOXING AND HAS NO HAD ETOH IN 6 DAYS. PT.DENIES ANY MISSED DOSES,CP,SOB,DIET/MED CHANGES OR SX OF BLEEDING. BOOST TO 10MGM TODAY AND TOMORROW THEN RESUME PRESENT DOSE AND FOLLOW-UP IN 2 WEEKS. NO GREENS 1-2 DAYS. GOOD UNDERSTANDING OF DOSING INSTR. 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
== END 2024-08-07 10:25 | disposition home or self-care (01) ==
LOC: HO.ACS 09:59
PROVIDERS: PCP Internal Medicine; Visit Provider Internal Medicine
DX: Z79.01 Long term (current) use of anticoagulants (principal)

== ENCOUNTER → 2024-08-07 09:59 | Outpatient (BNVA) | payer MEDICAID, SELFPAY | PROVIDERS: PCP Internal Medicine; Visit Provider Internal Medicine | DX: Z86.73 Personal history of transient ischemic attack (TIA), and cerebral infarction without residual deficits (principal); Z79.01 Long term (current) use of anticoagulants; Z51.81 Encounter for therapeutic drug level monitoring | CPT/HCPCS: 85610; 99211 ==

== ENCOUNTER 2024-08-27 10:16 | Outpatient (AMB) | payer MEDICAID, SELFPAY ==
--- NOTE | 2024-08-27 10:24 | MHC.OFFVISCO ---
Intake Intake Visit Reasons: Anticoagulation Allergies No Known Allergies Allergy (Mild, Verified 08/27/24 10:20) NOT APPLICABLE Medication List - Last Reconciled 08/27/24 by Shelly Fan RN acetaminophen 650 mg PO DAILY atorvastatin 40 mg PO BEDTIME warfarin 5 mg See Protocol PO DAILY warfarin 7.5 mg See Protocol PO DAILY Nursing Note INR 1.7-?? out of therapeutic range of 2-3 Medications and supplements reviewed Patient status: pt denies missed dose Medications or supplements: no changes Diet: same Denies any signs and symptoms of bleeding or clotting or unusual bruising Bleeding, bruising, clotting discussed Nutritional guidance given: no greens for 2 days, eat reds for 2 days Dose: already took warfarin today, increase weekly dosing 10mg x 2, 7.5mg x 5 F/U INR Date : 2 weeks? Patient verbalizing understanding of instructions given. 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
[2024-08-27 10:25] LABS: Prothrombin Time Whole Bld POC 20.7 sec (11.1-13.5); ~PT, ~INR - Anti Coag Clinic 1.7 (0.9-1.1)
== END 2024-08-27 10:32 | disposition home or self-care (01) ==
LOC: HO.ACS 10:16
PROVIDERS: PCP Internal Medicine; Visit Provider Internal Medicine
DX: Z79.01 Long term (current) use of anticoagulants (principal)

== ENCOUNTER → 2024-08-27 10:16 | Outpatient (BNVA) | payer MEDICAID, SELFPAY | PROVIDERS: PCP Internal Medicine; Visit Provider Internal Medicine | DX: Z86.73 Personal history of transient ischemic attack (TIA), and cerebral infarction without residual deficits (principal); Z79.01 Long term (current) use of anticoagulants; Z51.81 Encounter for therapeutic drug level monitoring | CPT/HCPCS: 85610; 99211 ==

== ENCOUNTER 2024-09-11 10:09 | Outpatient (AMB) | payer MEDICAID, SELFPAY ==
--- NOTE | 2024-09-11 10:23 | MHC.OFFVISCO ---
Intake Intake Visit Reasons: Anticoagulation Allergies No Known Allergies Allergy (Mild, Verified 09/11/24 10:19) NOT APPLICABLE Medication List - Last Reconciled 09/11/24 by Shelly Fan RN acetaminophen 650 mg PO DAILY atorvastatin 40 mg PO BEDTIME warfarin 5 mg See Protocol PO DAILY warfarin 7.5 mg See Protocol PO DAILY Nursing Note INR 4.9-?? out of therapeutic range 2-3 Medications and supplements reviewed Patient status: pt states etoh/wine which raises inr Medications or supplements: no changes Diet: good Denies any signs and symptoms of bleeding or clotting or unusual bruising Bleeding, bruising, clotting discussed - aware high risk for bleeding, avoid high risk activity Nutritional guidance given: eat dark greens today and tomm to lower, no reds for 2-3 days Dose: already took warfarin today, hold tomm, reduce fri to 5mg then 7.5mg x 6, 10mg x 1 F/U INR Date : mon09/16/24? Patient verbalizing understanding of instructions given. Anti-Coag Initial Assessment Social Hx alcohol intake: current Alcohol intake frequency: holidays/special occasions only Coding Level of Care Code Est Patient Level 1 Diagnoses Current use of anticoagulant therapy Z79.01 Assessment & Plan Assessment & Plan (1) Current use of anticoagulant therapy: Code(s): Z79.01 - [facility] (current) use of anticoagulants Category: Medical
[2024-09-11 10:25] LABS: Prothrombin Time Whole Bld POC 58.3 sec (11.1-13.5); ~PT, ~INR - Anti Coag Clinic 4.9 (0.9-1.1)
== END 2024-09-11 10:56 | disposition home or self-care (01) ==
LOC: HO.ACS 10:09
PROVIDERS: PCP Internal Medicine; Visit Provider Internal Medicine
DX: Z79.01 Long term (current) use of anticoagulants (principal)

== ENCOUNTER → 2024-09-11 10:09 | Outpatient (BNVA) | payer MEDICAID, SELFPAY | PROVIDERS: PCP Internal Medicine; Visit Provider Internal Medicine | DX: Z86.73 Personal history of transient ischemic attack (TIA), and cerebral infarction without residual deficits (principal); Z79.01 Long term (current) use of anticoagulants; Z51.81 Encounter for therapeutic drug level monitoring | CPT/HCPCS: 85610; 99211 ==

== ENCOUNTER 2024-09-16 10:33 | Outpatient (AMB) | payer MEDICAID, SELFPAY ==
[2024-09-16 10:40] LABS: Prothrombin Time Whole Bld POC 15.3 sec (11.1-13.5); ~PT, ~INR - Anti Coag Clinic 1.3 (0.9-1.1)
--- NOTE | 2024-09-16 10:52 | MHC.OFFVISCO ---
Intake Intake Visit Reasons: Anticoagulation Allergies No Known Allergies Allergy (Mild, Verified 09/16/24 10:35) NOT APPLICABLE Medication List - Last Reconciled 09/16/24 by Andreina Lucas RN acetaminophen 650 mg PO DAILY atorvastatin 40 mg PO BEDTIME warfarin 5 mg See Protocol PO DAILY warfarin 7.5 mg See Protocol PO DAILY Nursing Note INR: 1.3 OUT OF therapeutic range- due to dietary changes Medications and supplements reviewed pt has decreased his ETOH consumption significantly which may be lowering his INR, it has been his choice to remain on warfarin, he prefers to keep warfarin dose the same for now - he will try to balance with diet Denies any signs and symptoms of bleeding or bruising or clotting. Bleeding, bruising, clotting discussed Nutritional guidance given - avoid greens x 3 days , eat orange and reds to help raise the INR Dose: resume 10mg x 1 day/ 7.5mg x 6 days F/U INR: 2 weeks per pt request - he understands and is aware of risks Patient verbalizes understanding of instructions given t/c to PCP office left msg for PCP that INR flucuates with his lifestyle and dietary habits that include ETOH inconsistencies, and perhaps enc a DOAC should he choose to stay on a form of anticoagulation Anti-Coag Initial Assessment Social Hx alcohol intake: current Alcohol intake frequency: holidays/special occasions only Coding Level of Care Code Est Patient Level 1 Diagnoses Current use of anticoagulant therapy Z79.01 Assessment & Plan Assessment & Plan (1) Current use of anticoagulant therapy: Code(s): 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
== END 2024-09-16 10:57 | disposition home or self-care (01) ==
LOC: HO.ACS 10:33
PROVIDERS: PCP Internal Medicine; Visit Provider Internal Medicine
DX: Z79.01 Long term (current) use of anticoagulants (principal)

== ENCOUNTER → 2024-09-16 10:33 | Outpatient (BNVA) | payer MEDICAID, SELFPAY | PROVIDERS: PCP Internal Medicine; Visit Provider Internal Medicine | DX: Z86.73 Personal history of transient ischemic attack (TIA), and cerebral infarction without residual deficits (principal); Z79.01 Long term (current) use of anticoagulants; Z51.81 Encounter for therapeutic drug level monitoring | CPT/HCPCS: 85610; 99211 ==

== ENCOUNTER 2024-10-17 11:21 | Outpatient (AMB) | payer MEDICAID, SELFPAY ==
[2024-10-17 11:38] LABS: Prothrombin Time Whole Bld POC 16.1 sec (11.1-13.5); ~PT, ~INR - Anti Coag Clinic 1.3 (0.9-1.1)
--- NOTE | 2024-10-17 11:38 | MHC.OFFVISCO ---
Intake Intake Visit Reasons: Anticoagulation Allergies No Known Allergies Allergy (Mild, Verified 10/17/24 11:26) NOT APPLICABLE Medication List - Last Reconciled 10/17/24 by Ginger Lyon, RN acetaminophen 650 mg PO DAILY atorvastatin 40 mg PO BEDTIME warfarin 5 mg See Protocol PO DAILY warfarin 7.5 mg See Protocol PO DAILY Nursing Note INR: 1.3 out of therapeutic range of 2-3 Pt states he may have missed a dose Pt was a no show for last appt 2 weeks ago and last INR on 09/16/24 was 1.3 Medications and supplements reviewed: no changes Patient status: well, states he is participating in october and has stopped drinking alcohol Medications or supplements: no changes Diet: as usual Denies any signs and symptoms of bleeding or clotting or unusual bruising Bleeding, bruising, clotting discussed Nutritional guidance given: to avoid greens Dose: increase todays dose to 11.25mg and the same tomorrow then dose of 7.5mg X 5 days and 10mg X 2 days (this is a weekly increase of 2.5mg) F/U INR Date : 10/31/24?? Patient verbalizing understanding of instructions given. 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
== END 2024-10-17 11:47 | disposition home or self-care (01) ==
LOC: HO.ACS 11:21
PROVIDERS: PCP Internal Medicine; Visit Provider Internal Medicine
DX: Z79.01 Long term (current) use of anticoagulants (principal)

== ENCOUNTER → 2024-10-17 11:21 | Outpatient (BNVA) | payer MEDICAID, SELFPAY | PROVIDERS: PCP Internal Medicine; Visit Provider Internal Medicine | DX: Z86.73 Personal history of transient ischemic attack (TIA), and cerebral infarction without residual deficits (principal); Z79.01 Long term (current) use of anticoagulants; Z51.81 Encounter for therapeutic drug level monitoring | CPT/HCPCS: 85610; 99211 ==

== ENCOUNTER 2024-10-31 11:32 | Outpatient (AMB) | payer MEDICAID, SELFPAY ==
[2024-10-31 11:44] LABS: Prothrombin Time Whole Bld POC 25.7 sec (11.1-13.5); ~PT, ~INR - Anti Coag Clinic 2.1 (0.9-1.1)
--- NOTE | 2024-10-31 11:54 | MHC.OFFVISCO ---
Intake Intake Visit Reasons: Anticoagulation Allergies No Known Allergies Allergy (Mild, Verified 10/31/24 11:39) NOT APPLICABLE Medication List - Last Reconciled 10/31/24 by Ginger Lyon, AMMY acetaminophen 650 mg PO DAILY atorvastatin 40 mg PO BEDTIME warfarin 5 mg See Protocol PO DAILY warfarin 7.5 mg See Protocol PO DAILY Nursing Note INR: 2.1 in therapeutic range of 2-3 Medications and supplements reviewed No changes in health, diet, medications, or supplements, Denies any signs and symptoms of bleeding or bruising or clotting. Bleeding, bruising, clotting discussed Pt has not had any alcohol for month of October but plans on drinking on 11/09/24 for a planned occassion and thus, dose adjusted. Nutritional guidance given to balance foods that raise with foods that lower the INR. Dose: 7.5mg X 5 days and 10mg X 2 days. On 11/08/24, pt will decrease dose from 10mg to 7.5mg. This is the day before the event where he will be having alcohol. 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
== END 2024-10-31 11:59 | disposition home or self-care (01) ==
LOC: HO.ACS 11:32
PROVIDERS: PCP Internal Medicine; Visit Provider Internal Medicine
DX: Z79.01 Long term (current) use of anticoagulants (principal)

== ENCOUNTER → 2024-10-31 11:32 | Outpatient (BNVA) | payer MEDICAID, SELFPAY | PROVIDERS: PCP Internal Medicine; Visit Provider Internal Medicine | DX: Z86.73 Personal history of transient ischemic attack (TIA), and cerebral infarction without residual deficits (principal); Z79.01 Long term (current) use of anticoagulants; Z51.81 Encounter for therapeutic drug level monitoring | CPT/HCPCS: 85610; 99211 ==

== ENCOUNTER 2024-11-19 11:11 | Outpatient (AMB) | payer MEDICAID, SELFPAY ==
[2024-11-19 11:33] LABS: Prothrombin Time Whole Bld POC 24.3 sec (11.1-13.5)
--- NOTE | 2024-11-19 11:37 | MHC.OFFVISCO ---
Intake Intake Visit Reasons: Anticoagulation Allergies No Known Allergies Allergy (Mild, Verified 11/19/24 11:28) NOT APPLICABLE Medication List - Last Reconciled 11/19/24 by Ginger Lyon RN acetaminophen 650 mg PO DAILY atorvastatin 40 mg PO BEDTIME warfarin 5 mg See Protocol PO DAILY warfarin 7.5 mg See Protocol PO DAILY Nursing Note INR: 2.0 in therapeutic range of 2-3 Medications and supplements reviewed No changes in health, diet, medications, or supplements, Denies any signs and symptoms of bleeding or bruising or clotting. Bleeding, bruising, clotting discussed Nutritional guidance given to avoid greens today Dose: 7.5mg X 6 days and 10mg X 1 day (Mon) F/U INR: 3 weeks Patient verbalizes understanding of instructions with read back given Anti-Coag Initial Assessment Social Hx alcohol intake: current Alcohol intake frequency: holidays/special occasions only Coding Level of Care Code Est Patient Level 1 Diagnoses Current use of anticoagulant therapy Z79.01 Results AMB INR Fingerstick AMB INR Fingerstick 2.0 Last Edit by Ginger Lyon RN on 11/19/24 11:36 interface delay Assessment & Plan Assessment & Plan (1) Current use of anticoagulant therapy: Code(s): Z79.01 - terminal 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
--- OUTSIDE RECORDS SUMMARY | 2024-11-19 12:06 | XMS_ITS | Encounter Summary ---
Author Organization [facility] Address [address] [place] [address] Care Team Providers Care Hollock Maker Name Role Phone Community, Pcp Primary Care Provider Devika Zamora MD Primary Care Provider Kimi vailable Encounter Details Date Type Department Care Team Description 11/05/2012 Abstract [facility] [address] [place] [id number] Abstract, Provider Social History Tobacco Use Types Packs/Day Years Used Date Smoking Tobacco: Never Assessed Sex Assigned at Date Recorded Not on file documented as of this encounter Plan of Treatment Not on file documented as of this encounter Visit Diagnoses Not on filedocumented in this encounter Care Teams Hollock Maker Relationship Specialty Start Date End Date Community, Pcp PCP - General 04/10/08 08/13/20 Devika Hernandez MD PCP - General Internal Medicine 08/14/20 documented as of this encounter
--- OUTSIDE RECORDS SUMMARY | 2024-11-19 12:06 | XMS_ITS | Clinical Summary ---
Author Organization [facility] Address [address] [place] [address] Care Team Providers Care Manager [employer] Name Role Phone Devika Hernandez MD Primary Care Provider Kimi vailable Allergies No known active allergies Medications Medication Sig Dispensed Refills Start Date End Date Status simvastatin (ZOCOR) 20 MG tablet Take 20 mg by mouth at bedtime. 0 Active Warfarin Sodium (COUMADIN OR) Take by mouth. 0 Active betamethasone dipropionate (DIPROLENE) 0.05 % cream Apply twice a day to areas of hair loss x 1 week ... Wait one week before restarting cycle as needed 30 g 0 09/15/2020 Active Active Problems Problem Noted Date Other and unspecified hyperlipidemia Cryptogenic stroke 11/05/2012 Overview: Right cerebellar infarct on 03/23, s/p placement of a right frontal external ventriculostomy and a right posterior fossa craniectomy for evacuation of stroke hypercoagulation workup was unremarkable MILE 03/23 revealed intermediate sized fenestrated type PFO, pt had cardiac catheterization at both [facility] and a second opinion in [place], both cardiac catheterizations with MILE and intracardiac echocardiogram not revealing PFO, no ASD and no pulmonary AV malformation Social History Tobacco Use Types Packs/Day Years Used Date Smoking Tobacco: Never Assessed Sex Assigned at Date Recorded Not on file Last Filed Vital Signs Vital Sign Reading Time Taken Comments Blood Pressure 132/88 09/15/2020 2:09 PM EST Pulse 90 09/15/2020 2:09 PM EST Temperature - - Respiratory Rate - - Oxygen Saturation - - Inhaled Oxygen Concentration - - Weight 64.4 kg (142 lb) 09/15/2020 2:09 PM EST Height 167.6 cm (5' 6 ) 09/15/2020 2:09 PM EST Body Mass Index 22.92 09/15/2020 2:09 PM EST Plan of Treatment Health Maintenance Due Date Last Done Comments Covid-19 Vaccine (#1) 1979 TOBACCO CHECK/ADVISE 1997 DTAP/TDAP/TD (1 - Tdap) 1998 CHOLESTEROL SCREENING 1999 BASELINE HEALTH EXAM 40-64 2019 INFLUENZA (#1) 2024 PNEUMOCOCCAL VACCINE FOR HIGH RISK PATIENTS (#1) 04/03 Care Teams Manager [employer] Relationship Specialty Start Date End Date Devika Hernandez MD PCP - General Internal Medicine 08/14/20
--- OUTSIDE RECORDS SUMMARY | 2024-11-19 12:06 | XMS_ITS | Encounter Summary ---
Author Organization [facility] Address [address] [place] [address] Care Team Providers Care Master Machinist Name Role Phone Community, Pcp Primary Care Provider Devika Zamora MD Primary Care Provider Kimi vailable Reason for Visit * Reason Comments Abstracting Encounter Details Date Type Department Care Team Description 11/05/2012 Abstract [facility] [address] [place] [id number] Abstract, Provider Social History Tobacco Use Types Packs/Day Years Used Date Smoking Tobacco: Never Assessed Sex Assigned at Date Recorded Not on file documented as of this encounter Plan of Treatment Not on file documented as of this encounter Visit Diagnoses Not on filedocumented in this encounter Care Teams Master Machinist Relationship Specialty Start Date End Date Community, Pcp PCP - General 04/10/08 08/13/20 Devika Hernandez MD PCP - General Internal Medicine 08/14/20 documented as of this encounter
== END 2024-11-19 11:39 | disposition home or self-care (01) ==
LOC: HO.ACS 11:11
PROVIDERS: PCP Internal Medicine; Visit Provider Internal Medicine
DX: Z79.01 Long term (current) use of anticoagulants (principal)

== ENCOUNTER → 2024-11-19 11:11 | Outpatient (BNVA) | payer MEDICAID, SELFPAY | PROVIDERS: PCP Internal Medicine; Visit Provider Internal Medicine | DX: Z86.73 Personal history of transient ischemic attack (TIA), and cerebral infarction without residual deficits (principal); Z79.01 Long term (current) use of anticoagulants; Z51.81 Encounter for therapeutic drug level monitoring | CPT/HCPCS: 85610; 99211 ==

== ENCOUNTER 2024-12-10 12:17 | Outpatient (REF) | payer MEDICAID, SELFPAY ==
[2024-12-10 13:46] LABS: Alanine Aminotransferase 49 U/L (0-40); Albumin Level 4.7 g/dL (3.5-5.0); Alkaline Phosphatase 75 U/L (39-117); Anion Gap 13 (12-20); Aspartate Amino Transferase 37 U/L (5-37); Blood Urea Nitrogen 13 mg/dL (9-16); Carbon Dioxide 28 mmol/L (22-29); Chloride 105 mmol/L (96-108); Cholesterol 176 mg/dL (<200); Estimated Glomerular Filt Rate > 60; Glucose Random 104 mg/dL (60-115); HDL Cholesterol 57 mg/dL (>40); LDL Cholesterol Calculated 91 mg/dL (<100); Potassium 4.5 mmol/L (3.3-5.1); Sodium 141 mmol/L (135-145); Total Protein 8.3 g/dL (6.5-8.0); Triglycerides 142 mg/dL (<150)
== END 2024-12-10 12:18 | disposition home or self-care (01) ==
LOC: HO.LAB 12:17
PROVIDERS: PCP Internal Medicine; Visit Provider Internal Medicine
DX: E78.00 Pure hypercholesterolemia, unspecified (principal); I10 Essential (primary) hypertension; R74.01 Elevation of levels of liver transaminase levels; Z79.01 Long term (current) use of anticoagulants
CPT/HCPCS: 36415; 80053; 80061

== ENCOUNTER 2024-12-12 11:06 | Outpatient (AMB) | payer MEDICAID, SELFPAY ==
[2024-12-12 11:12] LABS: Prothrombin Time Whole Bld POC 32.6 sec (11.1-13.5); ~PT, ~INR - Anti Coag Clinic 2.7 (0.9-1.1)
--- NOTE | 2024-12-12 11:13 | MHC.OFFVISCO ---
Intake Intake Visit Reasons: Anticoagulation Allergies No Known Allergies Allergy (Mild, Verified 12/12/24 11:07) NOT APPLICABLE Medication List - Last Reconciled 12/12/24 by Ginger Lyon RN acetaminophen 650 mg PO DAILY atorvastatin 40 mg PO BEDTIME warfarin 5 mg See Protocol PO DAILY warfarin 7.5 mg See Protocol PO DAILY Nursing Note INR: 2.7 in therapeutic range of 2-3 Medications and supplements reviewed No changes in health, diet, medications, or supplements, Denies any signs and symptoms of bleeding or bruising or clotting. Bleeding, bruising, clotting discussed Nutritional guidance given Dose: 7.5mg X 6 days and 10mg X 1 day (Mon) F/U INR: 4 weeks Patient verbalizes understanding of instructions given Anti-Coag Initial Assessment Social Hx alcohol intake: current Alcohol intake frequency: holidays/special occasions only Questionnaires HAS-BLED Does the patient had uncontrolled Hypertension?: No Does the patient have renal disease?: No Does the patient have liver disease?: No Does the patient have a history of stroke?: Yes Has the patient had major bleeding or predisposition to bleeding?: No Does the patient have labile INRs?: Yes Is the patient over 65 years of age?: No Is the patient on medications that gives them a predisposition to bleeding?: Yes Does the patient use alcohol?: Yes HAS-BLED Score: 4 CHADSVASC Age: <65 Gender: Male Does the patient have a history of CHF?: No Does the patient have a history of Hypertension?: No Does the patient have a history of Stroke/TIA/Thromboembolism?: Yes Does the patient have a history of Vascular Disease (prior MT, PAD or aortic plaque)?: No Does the patient have a history of Diabetes?: No CHADS VACS Score: 2 Rocio Prediction Score Rsk VTE Active Cancer: No Previous VTE, excluding superficial vein thrombosis: No Reduced mobility: No Already known Thrombophilic Condition: No With-in last month Trauma and/or Surgery: No Elderly 70 year or older: No Heart and/or Respiratory Failure: No Acute Myocardial infarction and/or Ischemic Stroke: Yes Acute Infection and/or Rheumatologic Disorder: No Obesity (BMI 30 or greater): No Ongoing Hormonal Treatment: No Score: 1 Rocio Score less than 4; Low Risk of VTE Rocio Score 4 or greater; High Risk of VTE Coding Level of Care Code Est Patient Level 1 Diagnoses Current use of anticoagulant therapy Z79.01 Assessment & Plan Assessment & Plan (1) Current use of anticoagulant therapy: Code(s): Z79.01 - [facility] (current) use of anticoagulants Category: Medical
--- OUTSIDE RECORDS SUMMARY | 2024-12-12 13:24 | XMS_ITS | Encounter Summary ---
Author Organization [facility] Address [address] [place] [address] Care Team Providers Care Generation Manager Name Role Phone Community, Pcp Primary Care Provider Devika Zamora MD Primary Care Provider Kimi vailable Encounter Details Date Type Department Care Team Description 11/05/2012 Abstract [facility] [address] [place] [id number] Abstract, Provider Social History Tobacco Use Types Packs/Day Years Used Date Smoking Tobacco: Never Assessed Sex Assigned at Date Recorded Not on file documented as of this encounter Plan of Treatment Not on file documented as of this encounter Visit Diagnoses Not on filedocumented in this encounter Care Teams Generation Manager Relationship Specialty Start Date End Date Community, Pcp PCP - General 04/10/08 08/13/20 Devika Hernandez MD PCP - General Internal Medicine 08/14/20 documented as of this encounter
--- OUTSIDE RECORDS SUMMARY | 2024-12-12 13:24 | XMS_ITS | Clinical Summary ---
Author Organization [facility] Address [address] [place] [address] Care Team Providers Care Insurance Sales Manager Name Role Phone Devika Hernandez MD Primary [...] PFO, pt had cardiac catheterization at both [facility] and a second opinion in [place], both cardiac catheterizations with MILE and intracardiac [...] HIGH RISK PATIENTS (#1) 04/03 Care Teams Insurance Sales Manager Relationship Specialty Start Date End Date Devika Hernandez MD PCP - General Internal Medicine 08/14/20
== END 2024-12-12 11:20 | disposition home or self-care (01) ==
LOC: HO.ACS 11:06
PROVIDERS: PCP Internal Medicine; Visit Provider Internal Medicine
DX: Z79.01 Long term (current) use of anticoagulants (principal)

== ENCOUNTER → 2024-12-12 11:06 | Outpatient (BNVA) | payer MEDICAID, SELFPAY | PROVIDERS: PCP Internal Medicine; Visit Provider Internal Medicine | DX: Z86.73 Personal history of transient ischemic attack (TIA), and cerebral infarction without residual deficits (principal); Z79.01 Long term (current) use of anticoagulants; Z51.81 Encounter for therapeutic drug level monitoring | CPT/HCPCS: 85610; 99211 ==

== ENCOUNTER 2025-01-14 13:42 | Outpatient (AMB) | payer MEDICAID, SELFPAY ==
[2025-01-14 13:49] LABS: ~PT, ~INR - Anti Coag Clinic 1.7 (0.9-1.1)
--- NOTE | 2025-01-14 13:51 | MHC.OFFVISCO ---
Intake Intake Visit Reasons: Anticoagulation Allergies No Known Allergies Allergy (Mild, Verified 01/14/25 13:43) NOT APPLICABLE Medication List - Last Reconciled 01/14/25 by Ginger Lyon, RN acetaminophen 650 mg PO DAILY atorvastatin 40 mg PO BEDTIME warfarin 5 mg See Protocol PO DAILY warfarin 7.5 mg See Protocol PO DAILY Nursing Note INR: 1.7?out of therapeutic range of 2-3 Pt states he thinks he missed a dose Medications and supplements reviewed Patient status: well Medications or supplements: no changes Diet: usual diet for pt Denies any signs and symptoms of bleeding or clotting or unusual bruising Bleeding, bruising, clotting discussed Nutritional guidance given: to avoid greens today Dose: pt states he will have wine tonight which will increase the INR. Will increase tomorrow's dose from 7.5mg to 10mg then to resume usual dose of 7.5mg X 6 days and 10mg X 1 day (Mon) F/U INR Date : 4 weeks Patient verbalizing understanding of instructions with read back given. Anti-Coag Initial Assessment Social Hx alcohol intake: current Alcohol intake frequency: holidays/special occasions only Coding Level of Care Code Est Patient Level 1 Diagnoses Current use of anticoagulant therapy Z79.01 Assessment & Plan Assessment & Plan (1) Current use of anticoagulant therapy: Code(s): Z79.01 - nursing home (current) use of anticoagulants Category: Medical
== END 2025-01-14 14:00 | disposition home or self-care (01) ==
LOC: HO.ACS 13:42
PROVIDERS: PCP Internal Medicine; Visit Provider Internal Medicine Medical Oncology
DX: Z79.01 Long term (current) use of anticoagulants (principal)

== ENCOUNTER → 2025-01-14 13:42 | Outpatient (BNVA) | payer MEDICAID, SELFPAY | PROVIDERS: PCP Internal Medicine; Visit Provider Internal Medicine Medical Oncology | DX: Z86.73 Personal history of transient ischemic attack (TIA), and cerebral infarction without residual deficits (principal); Z79.01 Long term (current) use of anticoagulants; Z51.81 Encounter for therapeutic drug level monitoring | CPT/HCPCS: 85610; 99211 ==

== ENCOUNTER 2025-02-11 10:24 | Outpatient (AMB) | payer MEDICAID, SELFPAY ==
[2025-02-11 10:32] LABS: Prothrombin Time Whole Bld POC 17.4 sec (11.1-13.5); ~PT, ~INR - Anti Coag Clinic 1.4 (0.9-1.1)
--- NOTE | 2025-02-11 10:35 | MHC.OFFVISCO ---
Intake Intake Visit Reasons: Anticoagulation Allergies No Known Allergies Allergy (Mild, Verified 02/11/25 10:25) NOT APPLICABLE Medication List - Last Reconciled 02/11/25 by Ginger Lyon, RN acetaminophen 650 mg PO DAILY atorvastatin 40 mg PO BEDTIME warfarin 5 mg See Protocol PO DAILY warfarin 7.5 mg See Protocol PO DAILY Nursing Note INR: 1.4?out of therapeutic range of 2-3 Medications and supplements reviewed Patient status: c/o allergies and has been taking loratadine which does not effect the INR but pt doesn't drink alcohol when he takes this med and not drinking, when he usually does, will lower the INR. Pt states he usually has to take allergy med for a week at this time of year. Medications or supplements: as above Diet: same Denies any signs and symptoms of bleeding or clotting or unusual bruising Bleeding, bruising, clotting discussed Nutritional guidance given: avoid greens for 3 days Dose: increase today's dose to 12.5mg (7.5mg) and increase tomorrow's dose to 10 mg (7.5mg) then usual dose of 7.5mg X 6 days and 10 mg X 1 day Pt states if he finds himself taking allergy med longer than 1 week, he will increase his dose the same as this week. F/U INR Date: pt requesting 4 weeks Patient verbalizing understanding of instructions given. Anti-Coag Initial Assessment Social Hx alcohol intake: current Alcohol intake frequency: holidays/special occasions only Coding Level of Care Code Est Patient Level 1 Diagnoses Current use of anticoagulant therapy Z79.01 Assessment & Plan Assessment & Plan (1) Current use of anticoagulant therapy: Code(s): Z79.01 - correction (current) use of anticoagulants Category: Medical
--- OUTSIDE RECORDS SUMMARY | 2025-02-11 11:58 | XMS_ITS | Clinical Summary ---
Author Organization [facility] Address [address] [place] [address] Care Team Providers Care Cloth Bleaching Supervisor Name Role Phone Devika Hernandez MD Primary [...] PFO, pt had cardiac catheterization at both [facility] and a second opinion in [place], both cardiac catheterizations with MILE and intracardiac [...] 1999 BASELINE HEALTH EXAM 40-64 2019 INFLUENZA (Season Ended) 2025 PNEUMOCOCCAL VACCINE FOR HIGH RISK PATIENTS (#1) 04/03 Care Teams Cloth Bleaching Supervisor Relationship Specialty Start Date End Date Devika Hernandez MD PCP - General Internal Medicine 08/14/20
--- OUTSIDE RECORDS SUMMARY | 2025-02-11 11:58 | XMS_ITS | Encounter Summary ---
Author Organization [facility] Address [address] [place] [address] Care Team Providers Care Electrophysiology Technician Name Role Phone Devika Hernandez MD Primary Care Provider Kimi vailable Encounter Details Date Type Department Care Team Description 09/18/2020 Release of Information Medical Records [address] [place] [address] Abstract, Provider Social History Tobacco Use Types Packs/Day Years Used Date Smoking Tobacco: Never Assessed Sex Assigned at Date Recorded Not on file COVID-19 Exposure Response Date Recorded In the last month, have you been in contact with someone who was confirmed or suspected to have Coronavirus / COVID-19? No / Unsure 09/15/2020 1:58 PM EST documented as of this encounter Plan of Treatment Not on file documented as of this encounter Visit Diagnoses Not on filedocumented in this encounter Care Teams Electrophysiology Technician Relationship Specialty Start Date End Date Devika Hernandez MD PCP - General Internal Medicine 08/14/20 documented as of this encounter
--- OUTSIDE RECORDS SUMMARY | 2025-02-11 11:58 | XMS_ITS | Encounter Summary ---
Author Organization [facility] Address [address] [place] [address] Care Team Providers Care Extrusion Engineer Name Role Phone Community, Pcp Primary Care Provider Devika Zamora MD Primary Care Provider Kimi vailable Encounter Details Date Type Department Care Team Description 11/05/2012 Abstract [facility] [address] [place] [address] Abstract, Provider Social History Tobacco Use Types Packs/Day Years Used Date Smoking Tobacco: Never Assessed Sex Assigned at Date Recorded Not on file documented as of this encounter Plan of Treatment Not on file documented as of this encounter Visit Diagnoses Not on filedocumented in this encounter Care Teams Extrusion Engineer Relationship Specialty Start Date End Date Community, Pcp PCP - General 04/10/08 08/13/20 Devika Hernandez MD PCP - General Internal Medicine 08/14/20 documented as of this encounter
== END 2025-02-11 10:49 | disposition home or self-care (01) ==
LOC: HO.ACS 10:24
PROVIDERS: PCP Internal Medicine; Visit Provider Internal Medicine Medical Oncology
DX: Z79.01 Long term (current) use of anticoagulants (principal)

== ENCOUNTER → 2025-02-11 10:24 | Outpatient (BNVA) | payer MEDICAID, SELFPAY | PROVIDERS: PCP Internal Medicine; Visit Provider Internal Medicine Medical Oncology | DX: Z86.73 Personal history of transient ischemic attack (TIA), and cerebral infarction without residual deficits (principal); Z79.01 Long term (current) use of anticoagulants; Z51.81 Encounter for therapeutic drug level monitoring | CPT/HCPCS: 85610; 99211 ==

== ENCOUNTER 2025-04-08 13:04 | Outpatient (AMB) | payer MEDICAID, SELFPAY ==
[2025-04-08 13:12] LABS: Prothrombin Time Whole Bld POC 20.9 sec (11.1-13.5); ~PT, ~INR - Anti Coag Clinic 1.7 (0.9-1.1)
--- NOTE | 2025-04-08 13:27 | MHC.OFFVISCO ---
Intake Intake Visit Reasons: Anticoagulation Allergies No Known Allergies Allergy (Mild, Verified 04/08/25 13:05) NOT APPLICABLE Medication List - Last Reconciled 04/08/25 by Andreina Lucas RN acetaminophen 650 mg PO DAILY atorvastatin 40 mg PO BEDTIME loratadine 10 mg PO DAILY warfarin 5 mg See Protocol PO DAILY warfarin 7.5 mg See Protocol PO DAILY Nursing Note INR: 1.7 out of therapeutic range Medications and supplements reviewed currently taking loratadine for allergy vs cold symptoms - leaving for vacation this weekend and expects dietary changes that may raise his INR Traveling for several weeks Denies any signs and symptoms of bleeding or bruising or clotting. Bleeding, bruising, clotting discussed Nutritional guidance given - avoid greens x 3 days then resume usual diet Dose: 10mg x 2 days this week - then 10mg x 1 day/ 7.5mg x 6 days F/U INR: April 29 after return from vacation Patient verbalizes understanding of instructions given Anti-Coag Initial Assessment Social Hx alcohol intake: current Alcohol intake frequency: holidays/special occasions only Coding Level of Care Code Est Patient Level 1 Diagnoses Current use of anticoagulant therapy Z79.01 Results AMB INR Fingerstick AMB INR Fingerstick 1.7 Last Edit by Andreina Lucas RN on 04/08/25 13:12 MANUAL ENTRY Assessment & Plan Assessment & Plan (1) Current use of anticoagulant therapy: Code(s): Z79.01 - 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
--- OUTSIDE RECORDS SUMMARY | 2025-04-08 14:50 | XMS_ITS | Patient Health Record ---
Author Organization [facility] Address [address] [place] [address] Care Team Providers Care Stenotype Machine Operator Name Role Phone Devika Hernandez Primary Care Provider UnavailDeshaun Spencer Unavailable [phone] Allergies No Known Allergies Reason For Referral Referring Provider First Name Devika Referring Provider Last Name Mary Referring Provider Speciality Internal M edicine Referred Organization [facility] Referred Provider Deshaun Ronquillo Referred Address [address] [facility],[address],[place],[address], Referred Provider Specialty Gastroentero logy General Notes Reny Hawley 2024 11:40:55 AM >requested [facility] referral from dr michaels office for visit with Dr Ronquillo on 04-08-25 [phone] Referral Priority Routine Medications Medication SIG (Take, Route, Fr equency, Duration) Notes Start Date End Date Status Atorvastatin Calcium Active Warfarin Sodium Acti ve Social History Tobacco Use: Social History Observation Description Date Details (start date - stop date) Never Smoker NA - NA Tobacco Control (Standard) Question Answer Notes Tobacco use: Nonsmoker AUDIT-C (Standard) Question Answer Notes Did you have a drink contain ing alcohol in the past year? Yes How often did you have a dri nk containing alcohol in the past year? Never (0 point) How many drinks did you have on a typical day when you were drinking in the past year? 1 or 2 drinks (0 point) How often did you have six o r more drinks on one occasion in the past year? Never (0 point) Points 0 Interpretation Negative Section Notes: Nonsmoker; drinks EtOH regul heather-2 to 3 drinks a day Problems Problem Type SNOMED Code ICD Code Onset Dates Problem Status W/U Status Risk Notes Problem Colon cancer screening (309396692) Colon cancer screening (Z12.11) Active confirmed Problem Long-term current use of anticoagulant (029441650) steel buffer (current) use of anticoagulants (Z79.01) Active confirmed Problem Preprocedural examination (399707153214351) Preprocedural examination (Z01.818) Active confirmed Vital Signs Blood pressure diastolic 77 mm Hg 04/08/2025 Height 66 in 04/08/2025 Blood pressure systolic 111 mm Hg 04/08/2025 Weight 133 lbs 04/08/2025 BMI 21.46 kg/m2 04/08/2025 Procedures Procedure Date Ordered Date Performed Result Body Sit e COLONOSCOPY 04/08/2025 N/A Encounters Encounter Location Date Provider Diagnosis [facility] [address] [place] [address] 04/08/2025 Deshaun Ronquillo Colon cancer screeni ng Z12.11 ; Preprocedural examination Z01.818 and [facility] (current) use of anticoagulants Z79.01 Assessments Encounter Date Diagnosis (ICD Code) Assessment Notes Treatment Notes Treatment Clinical Notes Section Notes 04/08/2025 Colon cancer screening (ICD-10 - Z12.11) .Overall, Jose appears quite well. He is not having any new or worrisome GI complaints. Given his age and good clinical appearance I did recommend a colonoscopy for screening purposes. We did review the rationale for this in regard to colon cancer prevention. Full consent has been attained for this, including risks of bleeding and perforation. The procedure will be done with monitored anesthesia care. He was given the below instructions and advised to speak with Dr. Hernandez regarding adjustment of his Coumadin and possible need for Lovenox for bridging. Jose was comfortable with this plan. Thank you again for allowing me to participate in Jose's care. I shall continue to keep you advised of his progress. 04/08/2025 Preprocedural examination (ICD-10 - Z01.818) .Overall, Jose appears quite well. He is not having any new or worrisome GI complaints. Given his age and good clinical appearance I did recommend a colonoscopy for screening purposes. We did review the rationale for this in regard to colon cancer prevention. Full consent has been attained for this, including risks of bleeding and perforation. The procedure will be done with monitored anesthesia care. He was given the below instructions and advised to speak with Dr. Hernandez regarding adjustment of his Coumadin and possible need for Lovenox for bridging. Jose was comfortable with this plan. Thank you again for allowing me to participate in Jose's care. I shall continue to keep you advised of his progress. 04/08/2025 [facility] (current) use of anticoagulants (ICD-10 - Z79.01) .Overall, Jose appears quite well. He is not having any new or worrisome GI complaints. Given his age and good clinical appearance I did recommend a colonoscopy for screening purposes. We did review the rationale for this in regard to colon cancer prevention. Full consent has been attained for this, including risks of bleeding and perforation. The procedure will be done with monitored anesthesia care. He was given the below instructions and advised to speak with Dr. Hernandez regarding adjustment of his Coumadin and possible need for Lovenox for bridging. Jose was comfortable with this plan. Thank you again for allowing me to participate in Jose's care. I shall continue to keep you advised of his progress. Plan Of Treatment Pending Test Test Name Order Date COLONOSCOPY 04/08/2025 Next Appt Details Provider Name:Deshaun Ronquillo , 07/11/2025 09:30:00 AM, [address] [place] [address] , [place], [place], [phone], Insurance Providers Payer Name Payer Address Payer Phone Subscriber Number Group Number Insured Name Patient Relationship to Insured Coverage Start Date Coverage End Date [place] [address] [place] [address] [id number] JOSE ALANIZ Self - patient is the insured Medical (General) History Medical History History ICD Code 2007-- Minor CVA due to wha t sounds like an intracerebral bleed with need for subsequent surgery as described below---? etiology--on Coumadin since then. He denies any significant residual neurologic deficit Denies [place],DM,CVA,Lung disease,renal dise ase Allergies Surgical History Surgery Date(Month/Year) He describes neurosurgery fo r an intracerebral bleed in 2007 at the time of his stroke 2008
== END 2025-04-08 13:32 | disposition home or self-care (01) ==
LOC: HO.ACS 13:04
PROVIDERS: PCP Internal Medicine; Visit Provider Internal Medicine Medical Oncology
DX: Z79.01 Long term (current) use of anticoagulants (principal)

== ENCOUNTER → 2025-04-08 13:04 | Outpatient (BNVA) | payer MEDICAID, SELFPAY | PROVIDERS: PCP Internal Medicine; Visit Provider Internal Medicine Medical Oncology | DX: Z86.73 Personal history of transient ischemic attack (TIA), and cerebral infarction without residual deficits (principal); Z79.01 Long term (current) use of anticoagulants; Z51.81 Encounter for therapeutic drug level monitoring | CPT/HCPCS: 85610; 99211 ==

== ENCOUNTER 2025-04-30 11:21 | Outpatient (AMB) | payer MEDICAID, SELFPAY ==
[2025-04-30 11:31] LABS: Prothrombin Time Whole Bld POC 63.7 sec (11.1-13.5); ~PT, ~INR - Anti Coag Clinic 5.3 (0.9-1.1)
--- NOTE | 2025-04-30 11:41 | MHC.OFFVISCO ---
Intake Intake Visit Reasons: Anticoagulation Allergies No Known Allergies Allergy (Mild, Verified 04/30/25 11:41) NOT APPLICABLE Medication List - Last Reconciled 04/30/25 by Shelly Fan RN acetaminophen 650 mg PO DAILY atorvastatin 40 mg PO BEDTIME loratadine 10 mg PO DAILY warfarin 5 mg See Protocol PO DAILY warfarin 7.5 mg See Protocol PO DAILY Nursing Note INR 5.3-?? out of therapeutic range of 2-3 pt refused lab draw Medications and supplements reviewed Patient status: pt recently returned from vacation in [place], due to travel registered nurse pacu missed a dose of warfarin on monday so pt states self dosed and took 10mg warfarin on mon, mon and mon. Medications or supplements: no changes Diet: same Denies any signs and symptoms of bleeding or clotting or unusual bruising Bleeding, bruising, clotting discussed - pt aware high risk of bleeding, avoid high risk activity Nutritional guidance given: eat greens to lower, no reds for 3 days Dose: pt states already took warfarin today, hold tomm, hold fri am dose until after acs appt F/U INR Date : monday05/02/25. Patient verbalizing understanding of instructions given. pcp dr garza called, spoke to agustín at 1140- aware of elev inr/dosing and f/u appt Anti-Coag Initial Assessment Social Hx alcohol intake: current Alcohol intake frequency: holidays/special occasions only Coding Level of Care Code Est Patient Level 1 Diagnoses Current use of anticoagulant therapy Z79.01 Assessment & Plan Assessment & Plan (1) Current use of anticoagulant therapy: Code(s): Z79.01 - long term care social worker (current) use of anticoagulants Category: Medical
== END 2025-04-30 11:47 | disposition home or self-care (01) ==
LOC: HO.ACS 11:21
PROVIDERS: PCP Internal Medicine; Visit Provider Internal Medicine Medical Oncology
DX: Z79.01 Long term (current) use of anticoagulants (principal)

== ENCOUNTER → 2025-04-30 11:21 | Outpatient (BNVA) | payer MEDICAID, SELFPAY | PROVIDERS: PCP Internal Medicine; Visit Provider Internal Medicine Medical Oncology | DX: Z86.73 Personal history of transient ischemic attack (TIA), and cerebral infarction without residual deficits (principal); Z79.01 Long term (current) use of anticoagulants; Z51.81 Encounter for therapeutic drug level monitoring | CPT/HCPCS: 85610; 99211 ==

== ENCOUNTER 2025-05-02 11:19 | Outpatient (AMB) | payer MEDICAID, SELFPAY ==
[2025-05-02 11:26] LABS: Prothrombin Time Whole Bld POC 27.0 sec (11.1-13.5); ~PT, ~INR - Anti Coag Clinic 2.2 (0.9-1.1)
--- NOTE | 2025-05-02 11:26 | MHC.OFFVISCO ---
Intake Intake Visit Reasons: Anticoagulation Allergies No Known Allergies Allergy (Mild, Verified 05/02/25 11:20) NOT APPLICABLE Medication List - Last Reconciled 05/02/25 by Andreina Lucas RN acetaminophen 650 mg PO DAILY atorvastatin 40 mg PO BEDTIME loratadine 10 mg PO DAILY warfarin 5 mg See Protocol PO DAILY warfarin 7.5 mg See Protocol PO DAILY Nursing Note INR: 2.2 in therapeutic range Medications and supplements reviewed No changes in health, diet, medications, or supplements, Denies any signs and symptoms of bleeding or bruising or clotting. Bleeding, bruising, clotting discussed Nutritional guidance given Dose: 10mg monday/ 7.5mg x 6 days F/U INR: 1 month Patient verbalizes understanding of instructions given Anti-Coag Initial Assessment Social Hx alcohol intake: current Alcohol intake frequency: holidays/special occasions only Coding Level of Care Code Est Patient Level 1 Diagnoses Current use of anticoagulant therapy Z79.01 Assessment & Plan Assessment & Plan (1) Current use of anticoagulant therapy: Code(s): Z79.01 - operator catalyst concentration (current) use of anticoagulants Category: Medical
--- OUTSIDE RECORDS SUMMARY | 2025-05-02 11:45 | XMS_ITS | Patient Health Record ---
Author Organization [facility] Address [address] [place] [address] Care Team Providers Care Health Insurance Adjuster Name Role Phone Devika Hernandez Primary Care Provider UnavailDeshaun Spencer Unavailable [phone] Allergies No Known Allergies Reason For Referral Referring Provider First Name Devika Referring Provider Last Name Mary Referring Provider Speciality Internal M edicine Referred Organization [facility] Referred Provider Deshaun Ronquillo Referred Address [address] [facility],[address],[place], [place],[address], Referred Provider Specialty Gastroentero logy General Notes Reny Hawley 2024 11:40:55 AM >[facility]ested [facility] referral from [facility] michaels office for visit with Dr Ronquillo on 04-08-25 [phone] Referral Priority Routine Medications Medication SIG (Take, [...] Status Risk Notes Problem Colon cancer screening (926318376) Colon cancer screening (Z12.11) Active confirmed Problem termite control technician (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) use of anticoagulants (Z79.01) Active confirmed Problem Preprocedural examination (829734925331114) Preprocedural examination (Z01.818) Active confirmed Vital Signs Blood pressure diastolic 77 mm Hg 04/08/2025 Height 66 in 04/08/2025 Blood pressure systolic 111 mm Hg 04/08/2025 Weight 133 lbs 04/08/2025 BMI 21.46 kg/m2 04/08/2025 Procedures Procedure Date Ordered Date Performed Result Body Sit e COLONOSCOPY 04/08/2025 N/A Encounters Encounter Location Date Provider Diagnosis [facility] [address] [place] [address] 04/08/2025 Deshaun Ronquillo Colon cancer screeni ng Z12.11 ; Preprocedural examination Z01.818 and termite control technician (current) use of anticoagulants Z79.01 Assessments Encounter Date Diagnosis (ICD Code) Assessment Notes Treatment Notes Treatment Clinical Notes Section Notes 04/08/2025 Colon cancer screening (ICD-10 - Z12.11) Overall, Jose appears quite well. He is not having any new or worrisome GI complaints. Given his age and good clinical appearance I did recommend a colonoscopy for screening purposes. We did review the rationale for this in regard to colon cancer prevention. Full consent has been obtained for this, including risks of bleeding and [...] progress. 04/08/2025 Preprocedural examination (ICD-10 - Z01.818) Overall, Jose appears quite well. He is not having any new or worrisome GI complaints. Given his age and good clinical appearance I did recommend a colonoscopy for screening purposes. We did review the rationale for this in regard to colon cancer prevention. Full consent has been obtained for this, including risks of bleeding and [...] keep you advised of his progress. 04/08/2025 termite control technician (current) use of anticoagulants (ICD-10 - Z79.01) Overall, Jose appears quite well. He is not having any new or worrisome GI complaints. Given his age and good clinical appearance I did recommend a colonoscopy for screening purposes. We did review the rationale for this in regard to colon cancer prevention. Full consent has been obtained for this, including risks of bleeding and [...] Provider Name:Deshaun Ronquillo , 07/11/2025 09:30:00 AM, [address] [place] [address] , [place], [place], [phone], Insurance Providers Payer Name Payer Address Payer Phone Subscriber Number Group Number Insured Name Patient Relationship to Insured Coverage Start Date Coverage End Date [place] [address] [place] [address] [id number] JOSE ALANIZ Self - patient is the insured Medical (General) History Medical History History ICD Code 2007-- Minor CVA due to wha t sounds like an intracerebral bleed with need for subsequent surgery as described below---? etiology--on Coumadin since then. He denies any significant residual neurologic deficit Denies [place],DM,CVA,Lung disease,renal dise ase Allergies Surgical History Surgery Date(Month/Year) He describes neurosurgery fo r an intracerebral bleed in 2007 at the time of his stroke 2008
== END 2025-05-02 11:35 | disposition home or self-care (01) ==
LOC: HO.ACS 11:19
PROVIDERS: PCP Internal Medicine; Visit Provider Internal Medicine Medical Oncology
DX: Z79.01 Long term (current) use of anticoagulants (principal)

== ENCOUNTER → 2025-05-02 11:19 | Outpatient (BNVA) | payer MEDICAID, SELFPAY | PROVIDERS: PCP Internal Medicine; Visit Provider Internal Medicine Medical Oncology | DX: Z86.73 Personal history of transient ischemic attack (TIA), and cerebral infarction without residual deficits (principal); Z79.01 Long term (current) use of anticoagulants; Z51.81 Encounter for therapeutic drug level monitoring | CPT/HCPCS: 85610; 99211 ==

== ENCOUNTER 2025-06-10 10:34 | Outpatient (AMB) | payer MEDICAID, SELFPAY ==
[2025-06-10 11:07] LABS: Prothrombin Time Whole Bld POC 52.8 sec (11.1-13.5); ~PT, ~INR - Anti Coag Clinic 4.4 (0.9-1.1)
--- OUTSIDE RECORDS SUMMARY | 2025-06-10 11:23 | XMS_ITS | Encounter Summary ---
Author Organization [facility] Address [address] [place] [address] Care Team Providers Care Gamma Facilities Operator Name Role Phone Community, Pcp Primary Care Provider Devika Zamora MD Primary Care Provider Kimi vailable Encounter Details Date Type Department Care Team Description 11/05/2012 Abstract [facility] [address] [place] [address] Abstract, Provider Social History Tobacco Use Types Packs/Day Years Used Date Smoking Tobacco: Never Assessed Sex Assigned at Date Recorded Not on file documented as of this encounter Plan of Treatment Not on file documented as of this encounter Visit Diagnoses Not on filedocumented in this encounter Care Teams Gamma Facilities Operator Relationship Specialty Start Date End Date Community, Pcp PCP - General 04/10/08 08/13/20 Devika Hernandez MD PCP - General Internal Medicine 08/14/20 documented as of this encounter
--- OUTSIDE RECORDS SUMMARY | 2025-06-10 11:23 | XMS_ITS | Encounter Summary ---
Author Organization [facility] Address [address] [place] [address] Care Team Providers Care Log Cut Off Sawyer Name Role Phone Community, Pcp Primary Care Provider Devika Zamora MD Primary Care Provider Kimi vailable Reason for Visit * Reason Comments Abstracting Encounter Details Date Type Department Care Team Description 11/05/[address] [facility] [address] [place] [address] Abstract, Provider Social History Tobacco Use Types Packs/Day Years Used Date Smoking Tobacco: Never Assessed Sex Assigned at Date Recorded Not on file documented as of this encounter Plan of Treatment Not on file documented as of this encounter Visit Diagnoses Not on filedocumented in this encounter Care Teams Log Cut Off Sawyer Relationship Specialty Start Date End Date Community, Pcp PCP - General 04/10/08 08/13/20 Devika Hernandez MD PCP - General Internal Medicine 08/14/20 documented as of this encounter
--- OUTSIDE RECORDS SUMMARY | 2025-06-10 11:23 | XMS_ITS | Encounter Summary ---
Author Organization [facility] Address [address] [place] [address] Care Team Providers Care Foot Piece Assembler Name Role Phone Community, Pcp Primary Care Provider Devika Zamora MD Primary Care Provider Kimi vailable Encounter Details Date Type Department Care Team Description 11/02/2012 Abstract [facility] [address] [place] [address] Abstract, Provider Social History Tobacco Use Types Packs/Day Years Used Date Smoking Tobacco: Never Assessed Sex Assigned at Date Recorded Not on file documented as of this encounter Plan of Treatment Not on file documented as of this encounter Visit Diagnoses Not on filedocumented in this encounter Care Teams Foot Piece Assembler Relationship Specialty Start Date End Date Community, Pcp PCP - General 04/10/08 08/13/20 Devika Hernandez MD PCP - General Internal Medicine 08/14/20 documented as of this encounter
--- OUTSIDE RECORDS SUMMARY | 2025-06-10 11:23 | XMS_ITS | Patient Health Record ---
Author Organization [facility] Address [address] [place] [address] Care Team Providers Care Food Beverage Attendant Name Role Phone Devika Hernandez Primary Care Provider UnavailDeshaun Spencer Unavailable [phone] Allergies No Known Allergies Reason For Referral Referring Provider First Name Devika Referring Provider Last Name Mary Referring Provider Speciality Internal M edicine Referred Organization [facility] Referred Provider Deshaun Ronquillo Referred Address [address] [facility],[address],[place], [place],[address], Referred Provider Specialty Gastroentero logy General Notes Reny Hawley 2024 11:40:55 AM >requested [facility] referral from dr michaels office for visit with Dr Ronquillo on 04-08-25 [phone] Referral Priority Routine Medications Medication SIG (Take, [...] Status Risk Notes Problem Colon cancer screening (452380679) Colon cancer screening (Z12.11) Active confirmed Problem Long-term current use of anticoagulant (118681437) jail (current) use of anticoagulants (Z79.01) Active confirmed Problem Preprocedural examination (496047104063786) Preprocedural examination (Z01.818) Active confirmed Vital Signs Blood pressure diastolic 77 mm Hg 04/08/2025 Height 66 in 04/08/2025 Blood pressure systolic 111 mm Hg 04/08/2025 Weight 133 lbs 04/08/2025 BMI 21.46 kg/m2 04/08/2025 Procedures Procedure Date Ordered Date Performed Result Body Sit e COLONOSCOPY 04/08/2025 N/A Encounters Encounter Location Date Provider Diagnosis [facility] [address] [place] [address] 04/08/2025 Deshaun Ronquillo Colon cancer screeni ng Z12.11 ; Preprocedural examination Z01.818 and jail (current) use of anticoagulants Z79.01 Assessments Encounter [...] and possible need for Lovenox for bridging. oJse was comfortable with this plan. Thank you again for allowing me to participate in Jose's care. I shall continue to keep you advised of his progress. 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 etiology--on Coumadin since then. He denies any significant residual neurologic deficit Denies UT,DM,CVA,Lung disease,renal dise ase Allergies Surgical History Surgery Date(Month/Year) He describes neurosurgery fo r an intracerebral bleed in 2007 at the time of his stroke 2008
--- NOTE | 2025-06-10 11:33 | MHC.OFFVISCO ---
Intake Intake Visit Reasons: Anticoagulation Allergies No Known Allergies Allergy (Mild, Verified 06/10/25 10:48) NOT APPLICABLE Medication List - Last Reconciled 06/10/25 by Andreina Lucas RN acetaminophen 650 mg PO DAILY atorvastatin 40 mg PO BEDTIME loratadine 10 mg PO DAILY warfarin 5 mg See Protocol PO DAILY warfarin 7.5 mg See Protocol PO DAILY Nursing Note INR 4.4 out of therapeutic range Medications and supplements reviewed Patient status: states he has had wine, risk of wine explained, pt verb understanding Medications or supplements: no changes Diet: good Denies any signs and symptoms of bleeding or clotting or unusual bruising Bleeding, bruising, clotting discussed Nutritional guidance given: enc greens today and no ETOH today as it can raise the INR higher putting him at risk for bleeding Dose: already took today's dose and will hold tomorrow's dose then resume usual dose 7.5mg x 6 days/ 10mg monday F/U INR Date: pt request 1 month and is aware of risks ?? Patient verbalizing understanding of instructions given. Anti-Coag Initial Assessment Social Hx alcohol intake: current Alcohol intake frequency: holidays/special occasions only Coding Level of Care Code Est Patient Level 1 Diagnoses Current use of anticoagulant therapy Z79.01 Results AMB INR Fingerstick AMB INR Fingerstick 4.4 Last Edit by Andreina Lucas RN on 06/10/25 10:54 MANUAL ENTRY Assessment & Plan Assessment & Plan (1) Current use of anticoagulant therapy: Code(s): Z79.01 - alf (current) use of anticoagulants Category: Medical
== END 2025-06-10 10:59 | disposition home or self-care (01) ==
LOC: HO.ACS 10:34
PROVIDERS: PCP Internal Medicine; Visit Provider Internal Medicine Medical Oncology
DX: Z79.01 Long term (current) use of anticoagulants (principal)

== ENCOUNTER → 2025-06-10 10:34 | Outpatient (BNVA) | payer MEDICAID, SELFPAY | PROVIDERS: PCP Internal Medicine; Visit Provider Internal Medicine Medical Oncology | DX: Z86.73 Personal history of transient ischemic attack (TIA), and cerebral infarction without residual deficits (principal); Z79.01 Long term (current) use of anticoagulants; Z51.81 Encounter for therapeutic drug level monitoring | CPT/HCPCS: 85610; 99211 ==

== ENCOUNTER 2025-07-11 08:24 | Day surgery (SDC) | payer MEDICAID, SELFPAY ==
--- OUTSIDE RECORDS SUMMARY | 2025-05-20 13:35 | XMS_ITS | Patient Health Record ---
Author Organization [facility] Address [address] [place] [address] Care Team Providers Care Transferrer Name Role Phone Devika Hernandez Primary Care Provider UnavailDeshaun pSencer Unavailable [phone] Allergies No Known Allergies Reason For Referral Referring Provider First Name Devika Referring Provider Last Name Mary Referring Provider Speciality Internal M edicine Referred Organization [facility] Referred Provider Deshaun Ronquillo Referred Address [address] [facility],[place], [place],[address], Referred Provider Specialty Gastroentero logy General Notes Reny Hawley 2024 11:40:55 AM >requested [facility] referral from [facility] michaels office for visit with Dr Ronquillo on 04-08-25 [phone] Referral Priority Routine Medications Medication SIG (Take, [...] Status Risk Notes Problem Colon cancer screening (568226179) Colon cancer screening (Z12.11) Active confirmed Problem Long-term current use of anticoagulant (385514268) intermediate accountant (current) use of anticoagulants (Z79.01) Active confirmed Problem Preprocedural examination (866634286230990) Preprocedural examination (Z01.818) Active confirmed Vital Signs Blood pressure diastolic 77 mm Hg 04/08/2025 Height 66 in 04/08/2025 Blood pressure systolic 111 mm Hg 04/08/2025 Weight 133 lbs 04/08/2025 BMI 21.46 kg/m2 04/08/2025 Procedures Procedure Date Ordered Date Performed Result Body Sit e COLONOSCOPY 04/08/2025 N/A Encounters Encounter Location Date Provider Diagnosis [facility] [address] [place] [address] 04/08/2025 Deshaun Ronquillo Colon cancer screeni ng Z12.11 ; Preprocedural examination Z01.818 and intermediate accountant (current) use of anticoagulants Z79.01 Assessments Encounter [...] keep you advised of his progress. 04/08/2025 [facility] (current) use of anticoagulants (ICD-10 - Z79.01) [...] Provider Name:Deshaun Ronquillo , 07/11/2025 09:30:00 AM, [address] [place] [address] , [place], [place], [phone], Insurance Providers Payer Name Payer Address Payer Phone Subscriber Number Group Number Insured Name Patient Relationship to Insured Coverage Start Date Coverage End Date [place] [address] [place] [address] [id number] JOSE ALANIZ Self - patient is the insured Medical (General) History Medical History History ICD Code 2007-- Minor CVA due to wha t sounds like an intracerebral bleed with need for subsequent surgery as described below---? etiology--on Coumadin since then. He denies any significant residual neurologic deficit Denies [place],DM,CVA,Lung disease,renal dise ase Allergies Surgical History Surgery Date(Month/Year) He describes neurosurgery fo r an intracerebral bleed in 2007 at the time of his stroke 2008
--- NOTE | 2025-07-09 14:26 | HO.ANESPROP2 ---
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 PMFSH Active Problems Active Problems: All Active Problems Current use of anticoagulant therapy (Acute) CVA (cerebral vascular accident) (Acute) [facility]P (current) use of anticoagulants (Acute) Current use of termination clerk anticoagulation (Acute) Past Medical History Medical History Elevated cholesterol PFO (patent foramen ovale) Obstructive hydrocephalus Stroke Surgical History Surgical History Hx of craniotomy Social History Social History Alcohol intake: current Alcohol intake frequency: holidays/special occasions only Patient Tobacco Use Status: Never used Tobacco Use of substances other than those prescribed or required for medical reasons: No Are you DNR?: No Advance Directives: No Advance Directives Information Provided: Yes Meds Allergies Allergy/AdvReac Type Severity Reaction Status Date / Time No Known Allergies Allergy Mild NOT Verified 07/11/25 08:38 APPLICABLE Home Medications ?Medication ?Instructions ?Recorded ?Confirmed ?Last Taken ?Type warfarin 5 mg tablet 10 mg PO QWEEK 04/15/21 07/11/25 Unknown History atorvastatin 40 mg tablet 40 mg PO BEDTIME 10/26/23 07/11/25 Unknown History loratadine 10 mg tablet 10 mg PO DAILY PRN Allergy Symptoms 04/08/25 07/11/25 Unknown History Documented by User: All Mayo MD 07/11/25 09:57 PMFSH Past Medical History Medical History Elevated cholesterol PFO (patent foramen ovale) Obstructive hydrocephalus Stroke Functional capacity: independent ambulation Family History Family history of problems with anesthesia: No Surgical History Surgical History Hx of craniotomy History of Problems with Anesthesia: Yes Social History Social History Alcohol intake: current Alcohol intake frequency: holidays/special occasions only Patient Tobacco Use Status: Never used Tobacco Use of substances other than those prescribed or required for medical reasons: No Are you DNR?: No Advance Directives: No Advance Directives Information Provided: Yes Meds Allergies Allergy/AdvReac Type Severity Reaction Status Date / Time No Known Allergies Allergy Mild NOT Verified 07/11/25 08:38 APPLICABLE Home Medications ?Medication ?Instructions ?Recorded ?Confirmed ?Last Taken ?Type warfarin 5 mg tablet 10 mg PO QWEEK 04/15/21 07/11/25 Unknown History atorvastatin 40 mg tablet 40 mg PO BEDTIME 10/26/23 07/11/25 Unknown History loratadine 10 mg tablet 10 mg PO DAILY PRN Allergy Symptoms 04/08/25 07/11/25 Unknown History Exam Exam Date and Time: 07/11/25 Airway TM Dist: >3cm Neck ROM: Full Heart: rrr Lungs: cta Other: normal Assessment and Plan Assessment Anesthesia Assessment: Anesthesia Plan Discussed and Chart Reviewed Final Anesthetic Review Family History of Problems with Anesthesia: No History of Problems with Anesthesia: Yes NPO: Yes ASA Class: II Final Preanesthetic Review: No Changes in Pt Med Stat, Meds/Allgs Chart Reviewed, Consent Obtained/Reviewed and Anes Risks/Benef Reviewed Patient Risk: Low Procedure Risk: Low Anesthetic Plan Anesthetic Plan: MAC: Disposition: Standard PACU
[2025-07-09 14:33] VITALS: BMI 21.5
[2025-07-11 08:45] VITALS: BMI 21.6
[2025-07-11 09:02] VITALS: BP 135/96; PULSE 85; RESP 15; TEMP 36.3; O2SAT 95
[2025-07-11] MEDS: Lactated Ringers 1,000 ML 100 ML IVCONT (09:03)
[2025-07-11 09:18] LABS: INTERNATIONAL NORM RATIO 1.0 (0.9-1.1); Prothrombin Time 11.0 SEC (10.9-12.4)
[2025-07-11 10:42] VITALS: BP 96/72; PULSE 82; RESP 17; TEMP 36.2; O2SAT 95
--- NOTE | 2025-07-11 10:48 | PM.OP ---
Brief Operative Note Date of Service: 07/11/25 Pre-op diagnosis: Screening Post-op diagnosis: other (Polyp) Procedure: Colonoscopy to the cecum and TI with bx/removal of polyp Surgeon: Deshaun Ronquillo MD Was an Learning And Development Assistant used for this Procedure?: No Estimated blood loss (mL): 2.0 Pathology: other (A. Polyp at 60cm) Condition: stable Disposition: PACU
[2025-07-11 10:57] VITALS: BP 118/88; PULSE 81; RESP 17; O2SAT 95
[2025-07-11 11:13] VITALS: BP 128/98; PULSE 92; RESP 16; TEMP 36.3; O2SAT 98
--- NOTE | 2025-07-11 11:26 | OP_ITS ---
DATE OF SERVICE: 07/11/2025 SURGEON: Deshaun Ronquillo MD INDICATIONS: The patient presents for evaluation of colorectal cancer screening. Full consent has been obtained from him for this, including risks of bleeding and perforation. PREOPERATIVE DIAGNOSIS: Colorectal cancer screening. POSTOPERATIVE DIAGNOSIS: PROCEDURE PERFORMED: Colonoscopy to the cecum and terminal ileum with biopsy and removal of polyp. ESTIMATED BLOOD LOSS: COMPLICATIONS: ANESTHESIA: Medication used; monitored anesthesia care. ASSISTANTS: SPECIMENS: POSTOPERATIVE DIAGNOSES: Colorectal cancer screening, small colon polyp, mild sigmoid diverticulosis, and internal and external hemorrhoids. DESCRIPTION OF PROCEDURE: The patient was placed in the left lateral decubitus position. The digital rectal exam revealed external hemorrhoids. The Olympus video pediatric colonoscope was entered into the rectum and advanced easily to the cecum. Once in the cecum, I did identify normal-appearing cecal pouch with appendiceal orifice and a normal-appearing ileocecal valve. The terminal ileum was cannulated and appeared normal. The scope was withdrawn back into the colon. The entire cecum and ileocecal valve appeared normal. The scope was slowly withdrawn assessing all mucosal surfaces carefully. Preparation was excellent. At 60 cm, there was an approximately 5 mm grossly adenomatous polyp, which was biopsied and completely removed with cold biopsy forceps. I did not visualize any other polyps, colitis nor angiodysplasia. There were occasional diverticula noted in the sigmoid colon. In the rectum, scope was retroflexed visualizing internal hemorrhoids, but no other pathology. The rectal mucosa appeared normal. Scope was straightened and withdrawn from the patient. He tolerated the procedure well and was returned to recovery area in stable condition. IMPRESSION: 1. Colon polyp. 2. Internal and external hemorrhoids. 3. Occasional sigmoid diverticulosis. PLAN: The results of the pathology will be checked. If this is a tubular adenoma, I would recommend a followup coloscopy in 5 years. If it is only hyperplastic, I would recommend a followup colonoscopy in 10 years. He was advised that he could resume his Coumadin tomorrow at the usual dose and then have that adjusted by his primary care physician or the anticoagulation clinic. MD NOLA Zuniga/SERINA / [id number] MTDGaviota
== END 2025-07-11 13:57 | disposition home or self-care (01) ==
PROVIDERS: Nurse Practitioner; PCP Internal Medicine; Visit Provider Internal Medicine
PROC: 0DJD8ZZ Inspection of Lower Intestinal Tract, Via Natural or Artificial Opening Endoscopic (ICD-10-PCS; CPT 45378; principal; 2025-07-11 09:30)
DX: Z12.11 Encounter for screening for malignant neoplasm of colon (principal); D12.4 Benign neoplasm of descending colon; K57.30 Diverticulosis of large intestine without perforation or abscess without bleeding; K64.8 Other hemorrhoids; K64.4 Residual hemorrhoidal skin tags; Z86.73 Personal history of transient ischemic attack (TIA), and cerebral infarction without residual deficits; Z79.01 Long term (current) use of anticoagulants; Z79.899 Other long term (current) drug therapy; Z98.890 Other specified postprocedural states
CPT/HCPCS: 45380; 36415; 85610; 88305; J2003; J2704; J3010

== ENCOUNTER 2025-09-22 10:19 | Outpatient (AMB) | payer MEDICAID, SELFPAY ==
[2025-09-22 10:27] LABS: Prothrombin Time Whole Bld POC 22.6 sec (11.1-13.5); ~PT, ~INR - Anti Coag Clinic 1.9 (0.9-1.1)
--- NOTE | 2025-09-22 10:31 | MHC.OFFVISCO ---
Intake Intake Visit Reasons: Anticoagulation Allergies No Known Allergies Allergy (Mild, Verified 09/22/25 10:22) NOT APPLICABLE Medication List - Last Reconciled 09/22/25 by Ginger Lyon RN atorvastatin 40 mg PO BEDTIME loratadine 10 mg PO DAILY PRN warfarin 10 mg See Protocol PO QWEEK warfarin 7.5 mg See Protocol PO DAILY Nursing Note INR: 1.9 out of therapeutic range 2-3 Medications and supplements reviewed Patient status: well Medications or supplements: no changes Diet: usual diet for pt Denies any signs and symptoms of bleeding or clotting or unusual bruising Bleeding, bruising, clotting discussed Nutritional guidance given: to avoid greens today and to have a serving of foods that raise the INR Dose: increase today's dose to 10mg then 7.5mg X 6 days and 10mg X 1 day (Mon) F/U INR Date: 4 weeks?? Patient verbalizing understanding of instructions given. Anti-Coag Initial Assessment Social Hx Patient Tobacco Use Status: Never used Tobacco alcohol intake: current Alcohol intake frequency: holidays/special occasions only Coding Level of Care Code Est Patient Level 1 Diagnoses Current use of anticoagulant therapy Z79.01 Assessment & Plan Assessment & Plan (1) Current use of anticoagulant therapy: Code(s): Z79.01 - skilled nursing (current) use of anticoagulants Category: Medical
== END 2025-09-22 10:36 | disposition home or self-care (01) ==
LOC: HO.ACS 10:19
PROVIDERS: PCP Internal Medicine; Visit Provider Internal Medicine Medical Oncology
DX: Z79.01 Long term (current) use of anticoagulants (principal)

== ENCOUNTER → 2025-09-22 10:19 | Outpatient (BNVA) | payer MEDICAID, SELFPAY | PROVIDERS: PCP Internal Medicine; Visit Provider Internal Medicine Medical Oncology | DX: Z86.73 Personal history of transient ischemic attack (TIA), and cerebral infarction without residual deficits (principal); Z51.81 Encounter for therapeutic drug level monitoring; Z79.01 Long term (current) use of anticoagulants | CPT/HCPCS: 85610; 99211 ==